=== PATIENT | female | born 1945 | race Caucasian/White ===

== ENCOUNTER → 2016-05-25 | Outpatient (CLI) | payer OTHER ==
[~2016-05-25] MED LIST: ACET50TAOT PO; ADV250INH INH; ALBU17IN INH; ALBU83IN INH; ATOR40TA PO; COLA100C PO; DICY20TA11 PO; DULC5TAB PO; GEMF600T PO; HYDR12CA PO; K-TA10TA2 PO; LEVA250T PO; LEVA500T PO; LISI-542 PO; METF500T PO; MOM30SS PO; NAPR500T2 PO; NICO21DI5 TD; PEG1POW PO; PHILCAP3 PO; PHILCAP4 PO; PRED10PA PO; PRED10TA PO; PRED20TAB PO; PRIL1CAP PO; PROA1AER INH; RANI150T PO; REGL10TA6 PO; SALI0.653; TIOT18INH INH; TRAM50TA2 PO; TYLE325T5 PO; XOPEAER INH
[2016-05-25 17:38] LABS: BASO # 0.1 K/mm3 (0.0-0.2); BASO % 0.7 % (0.0-1.0); EOS # 0.3 K/mm3 (0.0-0.50); EOS % 2.9 % (0.0-3.0); LYMPH % 30.1 % (24.0-44.0); MEAN CORPUSCULAR HGB CONC 32.7 g/dl (32.0-36.5); MEAN CORPUSCULAR VOLUME 94.5 fl (80.0-96.0); MONO # 0.4 K/mm3 (0.0-0.8); MONO % 3.9 % (0.0-5.0); NEUTROPHILS % 59.5 % (36.0-66.0); WHITE BLOOD COUNT 10.1 K/mm3 (4.0-10.0)
[2016-05-25 17:42] LABS: ALBUMIN 3.9 GM/DL (3.2-5.2); ALBUMIN/GLOBULIN RATIO 1.22 (1.00-1.93); BILIRUBIN,TOTAL 0.2 MG/DL (0.2-1.0); CALCIUM LEVEL 9.2 MG/DL (8.8-10.2); CREATININE FOR GFR 0.98 MG/DL (0.55-1.02); GLOMERULAR FILTRATION RATE 59.6 (>39); TOTAL PROTEIN 7.1 GM/DL (6.4-8.2)
== END ==
LOC: M SMT 15:39
PROVIDERS: ATTEND Physician Assistant
DX: Z00.00 Encounter for general adult medical examination without abnormal findings (principal); B37.3 Candidiasis of vulva and vagina; R10.84 Generalized abdominal pain; E11.65 Type 2 diabetes mellitus with hyperglycemia

== ENCOUNTER → 2016-06-19 | Outpatient (CLI) | payer OTHER ==
[2016-06-19 11:59] LABS: ANION GAP 10 MEQ/L (8-16); BLOOD UREA NITROGEN 19 MG/DL (7-18); CALCIUM LEVEL 9.8 MG/DL (8.8-10.2); CARBON DIOXIDE LEVEL 26 MEQ/L (21-32); CHLORIDE LEVEL 103 MEQ/L (98-107); CHOLESTEROL LEVEL 157 MG/DL (<200); CREATININE FOR GFR 0.89 MG/DL (0.55-1.02); GLOMERULAR FILTRATION RATE > 60.0 (>39); GLUCOSE, FASTING 165 MG/DL (83-110); POTASSIUM SERUM 4.7 MEQ/L (3.5-5.1); SODIUM LEVEL 139 MEQ/L (136-145); TRIGLYCERIDES LEVEL 190 MG/DL (<150)
== END ==
LOC: M SMT 08:55
PROVIDERS: ATTEND Physician Assistant
DX: E78.2 Mixed hyperlipidemia (principal)

== ENCOUNTER → 2016-09-24 | Outpatient (CLI) | payer OTHER ==
[~2016-09-24] MED LIST changes: -ATOR40TA PO; +ATOR40TA75 PO; -COLA100C PO; +COLA100C5 PO; +LEVA1TAB PO; +LEVA1TAB2 PO; -LEVA250T PO; -LEVA500T PO; +LEVAINH INH; -METF500T PO; +METF500T13 PO; -NAPR500T2 PO; +NAPR500T3 PO; -PROA1AER INH; +PROAAER10 INH; +SALI0.6523; -SALI0.653; -XOPEAER INH
[2016-09-24 13:38] LABS: BASO # 0.1 K/mm3 (0.0-0.2); BASO % 0.5 % (0.0-1.0); EOS # 0.5 K/mm3 (0.0-0.50); EOS % 3.4 % (0.0-3.0); LARGE UNSTAINED CELL # 0.3 K/mm3 (0.0-0.4); LYMPH % 29.2 % (24.0-44.0); MEAN CORPUSCULAR HEMOGLOBIN 30.8 pg (27.0-33.0); MEAN CORPUSCULAR HGB CONC 32.6 g/dl (32.0-36.5); MEAN CORPUSCULAR VOLUME 94.3 fl (80.0-96.0); MONO # 0.6 K/mm3 (0.0-0.8); MONO % 4.5 % (0.0-5.0); NEUTROPHILS # 8.2 K/mm3 (1.8-7.7); NEUTROPHILS % 60.4 % (36.0-66.0); PLATELET COUNT, AUTOMATED 294 k/mm3 (150-450); RED CELL DISTRIBUTION WIDTH 13.1 % (11.5-14.5); WHITE BLOOD COUNT 13.5 K/mm3 (4.0-10.0)
[2016-09-24 13:56] LABS: ALBUMIN 3.6 GM/DL (3.2-5.2); ALBUMIN/GLOBULIN RATIO 1.09 (1.00-1.93); ALKALINE PHOSPHATASE 130 U/L (45-117); ALT/SGPT 28 U/L (12-78); ANION GAP 10 MEQ/L (8-16); AST/SGOT 25 U/L (15-37); BILIRUBIN,TOTAL 0.4 MG/DL (0.2-1.0); BLOOD UREA NITROGEN 21 MG/DL (7-18); CALCIUM LEVEL 9.2 MG/DL (8.8-10.2); CARBON DIOXIDE LEVEL 25 MEQ/L (21-32); CHLORIDE LEVEL 104 MEQ/L (98-107); CHOLESTEROL LEVEL 136 MG/DL (<200); CREATININE FOR GFR 0.95 MG/DL (0.55-1.02); GLOMERULAR FILTRATION RATE > 60.0 (>39); GLUCOSE, FASTING 134 MG/DL (83-110); POTASSIUM SERUM 4.4 MEQ/L (3.5-5.1); SODIUM LEVEL 139 MEQ/L (136-145); TOTAL PROTEIN 6.9 GM/DL (6.4-8.2); TRIGLYCERIDES LEVEL 284 MG/DL (<150)
== END ==
LOC: M SMT 09:51
PROVIDERS: ATTEND Family Medicine
DX: E78.2 Mixed hyperlipidemia (principal); J44.9 Chronic obstructive pulmonary disease, unspecified; E11.65 Type 2 diabetes mellitus with hyperglycemia

== ENCOUNTER → 2016-09-30 | Outpatient (CLI) | payer OTHER ==
[2016-10-06 00:11] LABS: Lyme Disease IgG Ab 18 kDa Ban Absent (.); Lyme Disease IgG Ab 23 kDa Ban Absent (.); Lyme Disease IgG Ab 28 kDa Ban Absent (.); Lyme Disease IgG Ab 30 kDa Ban Absent (.); Lyme Disease IgG Ab 39 kDa Ban Absent (.); Lyme Disease IgG Ab 41 kDa Ban Absent (.); Lyme Disease IgG Ab 45 kDa Ban Absent (.); Lyme Disease IgG Ab 58 kDa Ban Absent (.); Lyme Disease IgG Ab 66 kDa Ban Absent (.); Lyme Disease IgG Ab 93 kDa Ban Absent (.); Lyme Disease IgG West Blot Int Negative (.); Lyme Disease IgG/IgM Antibodie <0.91 ISR (0.00-0.90); Lyme Disease IgM Ab 23 kDa Ban Absent (.); Lyme Disease IgM Ab 39 kDa Ban Absent (.); Lyme Disease IgM Ab 41 kDa Ban Absent (.); Lyme Disease IgM Ab Quantitati 0.86 index (0.00-0.79); Lyme Disease IgM West Blot Int Negative (.)
== END ==
LOC: M SMT 12:07
PROVIDERS: ATTEND Physician Assistant
DX: R53.83 Other fatigue (principal)

== ENCOUNTER → 2016-11-05 | Outpatient (REF) | payer OTHER | LOC: M LAB REF 18:00 | PROVIDERS: ATTEND Physician Assistant | DX: R10.2 Pelvic and perineal pain (principal) ==

== ENCOUNTER → 2016-11-10 | Outpatient (CLI) | payer OTHER ==
--- NOTE | 2016-11-10 17:01 | REP ---
PELVIC ULTRASOUND, BLADDER: 11/10/2016. CLINICAL HISTORY: Pelvic pressure, urinary frequency, evaluate for bladder prolapse. FINDINGS: The pre-void volume calculation 9.3 x 8.5 x 5 .8 cm corresponds to 299 mL. Postvoid image of the bladder shows it is empty. Ureteral jets were observed bilaterally. No bladder wall thickening, stone, mass or debris. Ultrasound cannot always define bladder prolapse. IMPRESSION: 1. Bladder volume 299 mL pre-void and it empties completely. Ureteral jets observed. No bladder wall thickening, mass or stone. Signed by Will Collado MD 11/11/2016 04:12 P
== END ==
LOC: M RAD 10:29
PROVIDERS: ATTEND Physician Assistant
DX: R10.2 Pelvic and perineal pain (principal)

== ENCOUNTER → 2016-12-17 | Outpatient (CLI) | payer OTHER ==
[2016-12-17 17:36] LABS: ANION GAP 10 MEQ/L (8-16); BLOOD UREA NITROGEN 15 MG/DL (7-18); CALCIUM LEVEL 9.5 MG/DL (8.8-10.2); CARBON DIOXIDE LEVEL 27 MEQ/L (21-32); CHLORIDE LEVEL 102 MEQ/L (98-107); CREATININE FOR GFR 0.96 MG/DL (0.55-1.02); FREE T4 0.97 NG/DL (0.76-1.46); GLOMERULAR FILTRATION RATE > 60.0 (>39); GLUCOSE, FASTING 148 MG/DL (83-110); POTASSIUM SERUM 4.7 MEQ/L (3.5-5.1); SODIUM LEVEL 139 MEQ/L (136-145)
== END ==
LOC: M SMT 11:06
PROVIDERS: ATTEND Physician Assistant
DX: E11.65 Type 2 diabetes mellitus with hyperglycemia (principal)

== ENCOUNTER → 2016-12-23 | Outpatient (CLI) | payer OTHER ==
--- NOTE | 2016-12-23 14:44 | REP ---
PA and lateral chest: Comparisons are 04/12/2059 and 07/13/2008. The lung delgado are clear. Cardiac size is normal. The shashi, mediastinum, and bony thorax are unremarkable. There is a stable small nodule in the right upper lobe, unchanged from 07/13/2008, likely a granuloma. Impression Negative PA and lateral chest. No interval change. Signed by Dev Carrasco MD 12/23/2016 02:35 P
== END ==
LOC: M SMT 14:00
PROVIDERS: ATTEND Family Medicine
DX: J44.1 Chronic obstructive pulmonary disease with (acute) exacerbation (principal)

== ENCOUNTER → 2017-06-23 | Outpatient (CLI) | payer OTHER ==
[2017-06-23 13:23] LABS: BASO # 0.1 10^3/uL (0.0-0.2); BASO % 0.5 % (0.0-1.0); EOS # 0.2 10^3/uL (0.0-0.50); HEMATOCRIT 44.2 % (36.0-47.0); HEMOGLOBIN 13.9 g/dl (12.0-15.5); IMMATURE GRANULOCYTE % 0.4 % (0-3.0); LYMPH # 3.4 10^3/uL (1.5-4.5); LYMPH % 32.4 % (24.0-44.0); MEAN CORPUSCULAR HEMOGLOBIN 29.7 pg (27.0-33.0); MEAN CORPUSCULAR HGB CONC 31.4 g/dl (32.0-36.5); MEAN CORPUSCULAR VOLUME 94.4 fl (80.0-96.0); MONO # 0.6 10^3/uL (0.0-0.8); MONO % 5.4 % (0.0-5.0); NEUTROPHILS # 6.2 10^3/uL (1.8-7.7); NEUTROPHILS % 59.3 % (36.0-66.0); PLATELET COUNT, AUTOMATED 349 10^3/uL (150-450); RED BLOOD COUNT 4.68 10^6/uL (4.00-5.40); RED CELL DISTRIBUTION WIDTH 13.7 % (11.5-14.5); WHITE BLOOD COUNT 10.4 10^3/uL (4.0-10.0)
[2017-06-23 13:34] LABS: ALBUMIN 3.6 GM/DL (3.2-5.2); ALBUMIN/GLOBULIN RATIO 0.97 (1.00-1.93); ALKALINE PHOSPHATASE 131 U/L (45-117); ALT/SGPT 22 U/L (12-78); ANION GAP 12 MEQ/L (8-16); AST/SGOT 24 U/L (7-37); BILIRUBIN,TOTAL 0.4 MG/DL (0.2-1.0); BLOOD UREA NITROGEN 18 MG/DL (7-18); CALCIUM LEVEL 9.3 MG/DL (8.8-10.2); CARBON DIOXIDE LEVEL 22 MEQ/L (21-32); CHLORIDE LEVEL 105 MEQ/L (98-107); CHOLESTEROL LEVEL 137 MG/DL (<200); CHOLESTEROL RISK RATIO 3.914 (<5); CREATININE FOR GFR 1.02 MG/DL (0.55-1.30); GLOMERULAR FILTRATION RATE 56.7 (>39); GLUCOSE, FASTING 149 MG/DL (70-100); HDL CHOLESTEROL 35 MG/DL (>40); LDL CHOLESTEROL 46.8 MG/DL (<100); NON-HDL-C 102 MG/DL; POTASSIUM SERUM 4.5 MEQ/L (3.5-5.1); SODIUM LEVEL 139 MEQ/L (136-145); TOTAL PROTEIN 7.3 GM/DL (6.4-8.2); TRIGLYCERIDES LEVEL 276 MG/DL (<150)
[2017-06-23 13:58] LABS: ESTIMATED AVERAGE GLUCOSE 186 MG/DL (60-110); HEMOGLOBIN A1c 8.1 %
[2017-06-23 14:07] LABS: CREATININE, URINE 66.2 MG/DL; MAU/CREAT RATIO 255.2 MCG/MG (0.0-30.0)
== END ==
LOC: M SMT 11:28
DX: J44.1 Chronic obstructive pulmonary disease with (acute) exacerbation (principal); E78.2 Mixed hyperlipidemia; E11.65 Type 2 diabetes mellitus with hyperglycemia; R30.0 Dysuria
CPT/HCPCS: 80053

== ENCOUNTER → 2017-12-06 | Outpatient (CLI) | payer OTHER ==
[2017-12-06 13:25] LABS: BASO # 0.1 10^3/uL (0.0-0.2); BASO % 0.6 % (0.0-1.0); EOS # 0.3 10^3/uL (0.0-0.50); EOS % 1.9 % (0.0-3.0); HEMATOCRIT 44.5 % (36.0-47.0); HEMOGLOBIN 14.8 g/dl (12.0-15.5); IMMATURE GRANULOCYTE % 0.3 % (0-3.0); LYMPH # 3.1 10^3/uL (1.5-4.5); LYMPH % 23.2 % (24.0-44.0); MEAN CORPUSCULAR HEMOGLOBIN 30.5 pg (27.0-33.0); MEAN CORPUSCULAR HGB CONC 33.3 g/dl (32.0-36.5); MEAN CORPUSCULAR VOLUME 91.8 fl (80.0-96.0); MONO % 7.2 % (0.0-5.0); NEUTROPHILS % 66.8 % (36.0-66.0); PLATELET COUNT, AUTOMATED 416 10^3/uL (150-450); RED BLOOD COUNT 4.85 10^6/uL (4.00-5.40); RED CELL DISTRIBUTION WIDTH 12.9 % (11.5-14.5); WHITE BLOOD COUNT 13.5 10^3/uL (4.0-10.0)
[2017-12-06 15:49] LABS: ALBUMIN 4.4 GM/DL (3.2-5.2); ALBUMIN/GLOBULIN RATIO 1.07 (1.00-1.93); ALKALINE PHOSPHATASE 128 U/L (45-117); ALT/SGPT 74 U/L (12-78); AMYLASE 67 U/L (25-115); ANION GAP 13 MEQ/L (8-16); AST/SGOT 132 U/L (7-37); BILIRUBIN,TOTAL 0.4 MG/DL (0.2-1.0); BLOOD UREA NITROGEN 30 MG/DL (7-18); CALCIUM LEVEL 10.4 MG/DL (8.8-10.2); CARBON DIOXIDE LEVEL 23 MEQ/L (21-32); CHLORIDE LEVEL 98 MEQ/L (98-107); CREATININE FOR GFR 1.19 MG/DL (0.55-1.30); GLOMERULAR FILTRATION RATE 47.3 (>39); GLUCOSE, FASTING 170 MG/DL (70-100); LIPASE 183 U/L (73-393); POTASSIUM SERUM 5.2 MEQ/L (3.5-5.1); SODIUM LEVEL 134 MEQ/L (136-145); TOTAL PROTEIN 8.5 GM/DL (6.4-8.2)
== END ==
LOC: M SMT 11:37
DX: R10.9 Unspecified abdominal pain (principal)
CPT/HCPCS: 82150

== ENCOUNTER → 2017-12-15 | Outpatient (REF) | payer OTHER | LOC: M LAB REF 17:16 | DX: K52.9 Noninfective gastroenteritis and colitis, unspecified (principal) | CPT/HCPCS: 83630 ==

== ENCOUNTER → 2018-01-27 | Outpatient (CLI) | payer OTHER | LOC: M RAD 11:38 | DX: Z12.31 Encounter for screening mammogram for malignant neoplasm of breast (principal); Z78.0 Asymptomatic menopausal state | CPT/HCPCS: 77067 ==

== ENCOUNTER → 2018-03-11 | Outpatient (CLI) | payer OTHER ==
[~2018-03-11] MED LIST changes: +ACET500T15 PO; -ACET50TAOT PO; -GEMF600T PO; +GEMF600T5 PO; -LEVA1TAB PO; +LEVA250T13 PO; +NAPR-885 PO; -NAPR500T3 PO; -NICO21DI5 TD; +NICO21DI6 TD; -SALI0.6523; +SALI0.6528
--- NOTE | 2018-03-11 14:48 | REP ---
LUMBAR SPINE, SEVEN VIEWS: HISTORY: Back pain. There is no acute fracture. The lumbar intervertebral discs are decreased in height consistent with disc degeneration. Osteophytes are present throughout the lumbar spine. There is narrowing of the L3-4 through L5-S1 facet joints. There are 6 mm of grade 1 spondylolisthesis of L4 on L5. This is unchanged with flexion and extension. IMPRESSION: Degenerative change, as described above. Electronically Signed by Matthias North MD 03/11/2018 02:57 P
== END ==
LOC: M SMT 13:58
PROVIDERS: ATTEND Physician Assistant
DX: M51.36 Other intervertebral disc degeneration, lumbar region (principal); M25.78 Osteophyte, vertebrae; M43.16 Spondylolisthesis, lumbar region; M54.5 Low back pain

== ENCOUNTER → 2018-05-30 | Outpatient (CLI) | payer MEDICARE ==
[2018-05-30 17:29] LABS: ALBUMIN 3.2 GM/DL (3.2-5.2); BILIRUBIN,TOTAL 0.3 MG/DL (0.2-1.0); CALCIUM LEVEL 9.1 MG/DL (8.8-10.2); CREATININE FOR GFR 0.99 MG/DL (0.55-1.30); FREE T4 1.05 NG/DL (0.76-1.46); GLOMERULAR FILTRATION RATE 58.5 (>39); POTASSIUM SERUM 4.3 MEQ/L (3.5-5.1); THYROID STIMULATING HORMONE 1.88 uIU/ML (0.358-3.740); TOTAL PROTEIN 6.5 GM/DL (6.4-8.2)
[2018-05-30 17:57] LABS: BASO # 0.1 10^3/uL (0.0-0.2); BASO % 0.6 % (0.0-1.0); EOS # 0.4 10^3/uL (0.0-0.50); EOS % 2.7 % (0.0-3.0); HEMATOCRIT 43.6 % (36.0-47.0); HEMOGLOBIN 13.8 g/dl (12.0-15.5); LYMPH # 3.2 10^3/uL (1.5-4.5); LYMPH % 24.2 % (24.0-44.0); MEAN CORPUSCULAR HEMOGLOBIN 29.9 pg (27.0-33.0); MEAN CORPUSCULAR HGB CONC 31.7 g/dl (32.0-36.5); MEAN CORPUSCULAR VOLUME 94.6 fl (80.0-96.0); MONO # 0.7 10^3/uL (0.0-0.8); MONO % 5.2 % (0.0-5.0); NEUTROPHILS # 8.8 10^3/uL (1.8-7.7); NEUTROPHILS % 66.9 % (36.0-66.0); PLATELET COUNT, AUTOMATED 314 10^3/uL (150-450); RED BLOOD COUNT 4.61 10^6/uL (4.00-5.40); WHITE BLOOD COUNT 13.1 10^3/uL (4.0-10.0)
== END ==
LOC: M SMT 14:52
PROVIDERS: ATTEND Physician Assistant
DX: R53.83 Other fatigue (principal)

== ENCOUNTER → 2018-09-28 | Outpatient (CLI) | payer MEDICARE ==
[~2018-09-28] MED LIST changes: +PRED-351 PO; -PRED10TA PO
== END ==
LOC: M PLARAD 12:28
PROVIDERS: ATTEND Internal Medicine Pulmonary Disease
DX: R91.8 Other nonspecific abnormal finding of lung field (principal); Z53.9 Procedure and treatment not carried out, unspecified reason

== ENCOUNTER → 2019-05-10 | Outpatient (REF) | payer MEDICARE | LOC: M LAB REF 17:05 | PROVIDERS: ATTEND Physician Assistant | DX: R39.15 Urgency of urination (principal) ==

== ENCOUNTER 2019-06-13 18:26 | Inpatient (IN) | payer MEDICARE ==
[~2019-06-13] VITALS: Ht 152.4 cm; Wt 96.0 kg
[2019-06-13] MEDS ORDERED: ONDANSETRON 4MG/2ML VIAL (J2405) IV ONE (19:30)
[2019-06-13] MEDS ORDERED: NS 1,000 ML IV ONE (19:30)
[2019-06-13] MEDS ORDERED: MORPHINE 4 MG/ML 1ML VIAL/SYRINGE (J2270) IV PRN (19:30)
[2019-06-13 19:41] LABS: BASO # 0.1 10^3/uL (0.0-0.2); BASO % 0.3 % (0.0-1.0); EOS % 0.1 % (0.0-3.0); HEMOGLOBIN 15.8 g/dl (12.0-15.5); LYMPH # 1.9 10^3/uL (1.5-5.0); LYMPH % 10.5 % (24.0-44.0); MEAN CORPUSCULAR HGB CONC 32.2 g/dl (32.0-36.5); MEAN CORPUSCULAR VOLUME 93.2 fl (80.0-96.0); MONO # 1.2 10^3/uL (0.0-0.8); MONO % 6.5 % (0.0-5.0); NEUTROPHILS # 14.8 10^3/uL (1.5-8.5); PLATELET COUNT, AUTOMATED 265 10^3/uL (150-450); RED BLOOD COUNT 5.26 10^6/uL (4.00-5.40)
[2019-06-13 20:24] LABS: ALBUMIN 3.5 GM/DL (3.2-5.2); BILIRUBIN,DIRECT 0.3 MG/DL (0.0-0.2); BILIRUBIN,TOTAL 1.1 MG/DL (0.2-1.0); CALCIUM LEVEL 9.5 MG/DL (8.8-10.2); CK-MB VALUE MASS 20.4 NG/ML (<3.6); CREATININE FOR GFR 1.19 MG/DL (0.55-1.30); GLOMERULAR FILTRATION RATE 47.2 (>39); MB/CK RELATIVE INDEX 0.72 (< OR =4); POTASSIUM SERUM 4.6 MEQ/L (3.5-5.1); TOTAL PROTEIN 7.2 GM/DL (6.4-8.2); TROPONIN I 0.02 NG/ML (< 0.10)
--- NOTE | 2019-06-13 20:45 | REPVR ---
PROCEDURE INFORMATION: Exam: CT Thoracic Spine Without Contrast Exam date and time: 06/13/2019 7:51 PM Age: 73 years old Clinical indication: Injury or trauma; Fall; Initial encounter; Blunt trauma (contusions or hematomas) TECHNIQUE: Imaging protocol: Computed tomography images of the thoracic spine without contrast. Radiation optimization: All CT scans at this facility use at least one of these dose optimization techniques: automated exposure control; mA and/or kV adjustment per patient size (includes targeted exams where dose is matched to clinical indication); or iterative reconstruction. COMPARISON: CR SPINE LS W/BENDING 03/11/2018 2:08 PM FINDINGS: Vertebrae: The thoracic vertebral bodies are normal in height, without abnormal subluxation. Diffuse osteopenia. No significant scoliosis of the thoracic spine. No visualized acute fracture involving the thoracic spine. Within the T3 vertebral body, there is a 7 mm hypodense lytic lesion, which is nonspecific. Discs/Spinal canal/Neural foramina: Degenerative changes are identified at multiple thoracic levels, with disc bulge/osteophyte complexes. Mild narrowing of the thecal sac is identified at T6-7 with a posterior disc bulge/osteophyte complex. No significant narrowing of the thecal sac at the remaining thoracic levels. There is no osseous impingement upon the exiting nerve roots within the thoracic neural foramina diffusely. Other bones/joints: Motion artifact limits evaluation of the ribs. Soft tissues: Mild swelling of the subcutaneous tissues posterior to the upper lumbar spine. Lungs: Centrilobular emphysematous changes are identified within the lungs bilaterally. Bilateral lung nodules are identified, most significant within the right upper lobe. The largest nodule in the right upper lobe measures 7 mm on series 502, image 32. There is a suggestion of air-fluid levels within the trachea and main pulmonary bronchi, although this can be contributed by artifact. Aspiration secretions are also considered. Gallbladder and bile ducts: Cholecystectomy clips identified. IMPRESSION: 1. No visualized acute fracture involving the thoracic spine. 2. Degenerative changes are identified at multiple thoracic levels. Mild narrowing of the thecal sac is identified at T6-7. 3. Within the T3 vertebral body, there is a 7 mm lytic lesion, which is nonspecific. A follow-up MRI is suggested. 4. Bilateral lung nodules are identified, most significant within the right upper lobe. For patients at low risk (minimal or absent history of smoking and of other known risk factors), recommend CT Chest at 3-6 months, then consider CT Chest at 18-24 months. For patients at high risk (history of smoking or of other known risk factors), recommend CT Chest at 3-6 months, then CT Chest at 18-24 months. Anyi Fuentes, Fleischner Society, 2017. 5. There is a suggestion of air-fluid levels within the trachea and main pulmonary bronchi, although this can be contributed by artifact. Aspiration secretions are also considered. Clinical correlation is recommended. 6. Additional findings described above. Electronically signed by: Dudley Whittaker On 06/13/2019 20:45:17 PM
[2019-06-13 20:47] LABS: AMORPHOUS SEDIMENT SMALL (NEGATIVE); APPEARANCE, URINE HAZY (CLEAR); BACTERIA, URINE AUTO NEGATIVE (NEGATIVE); BILIRUBIN, URINE AUTO NEGATIVE (NEGATIVE); BLOOD, URINE BLOOD 1+ (NEGATIVE); COLOR, URINE YELLOW (YELLOW); GLUCOSE, URINE (UA) AUTO 1+ mg/dL (NEGATIVE); KETONE, URINE AUTO TRACE mg/dL (NEGATIVE); LEUKOCYTE ESTERASE, URINE AUTO NEGATIVE (NEGATIVE); MUCUS, URINE SMALL (NEGATIVE); NITRITE, URINE AUTO NEGATIVE (NEGATIVE); PROTEIN, URINE AUTO 2+ mg/dL (NEGATIVE); RBC, URINE AUTO 0 /HPF (0-3); SPECIFIC GRAVITY URINE AUTO 1.016 (1.002-1.035); SQUAMOUS EPITHELIAL CELL UR AU 0 /HPF (0-6); UROBILINOGEN, URINE AUTO 0.2 mg/dL (0.0-2.0); WBC, URINE AUTO 0 /HPF (0-3)
--- NOTE | 2019-06-13 20:51 | REPVR ---
PROCEDURE INFORMATION: Exam: CT Head Without Contrast Exam date and time: 06/13/2019 7:51 PM Age: 73 years old Clinical indication: Injury or trauma; Fall; Initial encounter; Blunt trauma (contusions or hematomas) TECHNIQUE: Imaging protocol: Computed tomography of the head without contrast. Radiation optimization: All CT scans at this facility use at least one of these dose optimization techniques: automated exposure control; mA and/or kV adjustment per patient size (includes targeted exams where dose is matched to clinical indication); or iterative reconstruction. COMPARISON: No relevant prior studies available. FINDINGS: Brain: There is mild patchy white matter hypodensity, likely representing small vessel ischemic disease in a patient this age. The acuity of the white matter disease is indeterminate. The white-deluca differentiation is preserved demonstrating no acute territorial type infarct. Artifact limits evaluation of the cerebellum. No acute intracranial hemorrhage is visualized. Midline shift: There is no midline shift. Ventricles: There is mild prominence of the ventricles and sulci, compatible with atrophy. Bones/joints: The calvarium demonstrates no evidence for a depressed fracture. Sinuses: Visualized sinuses are unremarkable. No fluid levels. Mastoid air cells: No mastoid effusion. Orbits: Bilateral orbital lens implants. Soft tissues: Unremarkable. Vasculature: Intracranial atherosclerosis visualized. IMPRESSION: 1. No acute intracranial hemorrhage or acute territorial type infarct. 2. There is mild patchy white matter hypodensity, likely representing small vessel ischemic disease in a patient this age. 3. Mild atrophy. Electronically signed by: Dudley Whittaker On 06/13/2019 20:50:41 PM
--- NOTE | 2019-06-13 20:56 | REP ---
Clinical: Trauma. Fall. Technique: Frontal view of the pelvis with neutral and frog lateral views of the right and left hip. Findings: Left femoral neck fracture is suspected and correlation is required. Right hip and pelvis appear otherwise relatively normal for age. Impression: Left femoral neck fracture suspected. Electronically Signed by Navi Van MD 06/13/2019 08:47 P
--- NOTE | 2019-06-13 20:57 | REP ---
Clinical: Preoperative assessment . Comparison: 12/23/2016 . Findings: The mediastinum and cardiac silhouette are stable and within normal limits for portable technique. The lung delgado are clear without acute consolidation, effusion, or pneumothorax. Skeletal structures are intact. Impression: No acute cardiopulmonary process appreciated. Electronically Signed by Navi Van MD 06/13/2019 08:48 P
--- NOTE | 2019-06-13 20:57 | REPVR ---
PROCEDURE INFORMATION: Exam: CT Cervical Spine Without Contrast Exam date and time: 06/13/2019 7:51 PM Age: 73 years old Clinical indication: Injury or trauma; Fall; Initial encounter; Blunt trauma TECHNIQUE: Imaging protocol: Computed tomography images of the cervical spine without contrast. Radiation optimization: All CT scans at this facility use at least one of these dose optimization techniques: automated exposure control; mA and/or kV adjustment per patient size (includes targeted exams where dose is matched to clinical indication); or iterative reconstruction. COMPARISON: CR SPINE LS W/BENDING 03/11/2018 2:08 PM FINDINGS: Vertebrae: No definitive acute cervical spine fracture on this motion limited study. The facet alignment is preserved bilaterally. The occipital condyles and C1-C2 articulations appear intact. The cervical lordosis is straightened. Mild anterolisthesis of C3 on C4. Hypertrophic degenerative changes are identified at the junction of the anterior C1 arch and dens process. Discs/Spinal canal/Neural foramina: Spondylosis is visualized at multiple cervical levels. Facet arthropathy is identified at multiple cervical levels. Other bones/joints: Small foci of gas or pneumatocysts are identified within the proximal 1st ribs bilaterally. Soft tissues: No significant prevertebral soft tissue swelling. Lungs: No pneumothorax, as visualized. Emphysematous changes identified. Other findings: Motion artifact limits this study. Heterogeneous density of the thyroid gland. Atherosclerotic changes. IMPRESSION: 1. No definitive acute cervical spine fracture on this motion limited study. 2. The cervical lordosis is straightened. 3. Mild anterolisthesis of C3 on C4. 4. Spondylosis is visualized at multiple cervical levels. Electronically signed by: Dudley Whittaker On 06/13/2019 20:57:01 PM
--- NOTE | 2019-06-13 21:05 | REPVR ---
PROCEDURE INFORMATION: Exam: CT Lumbar Spine Without Contrast Exam date and time: 06/13/2019 7:51 PM Age: 73 years old Clinical indication: Injury or trauma; Fall; Initial encounter; Blunt trauma (contusions or hematomas) TECHNIQUE: Imaging protocol: Computed tomography images of the lumbar spine without contrast. Radiation optimization: All CT scans at this facility use at least one of these dose optimization techniques: automated exposure control; mA and/or kV adjustment per patient size (includes targeted exams where dose is matched to clinical indication); or iterative reconstruction. COMPARISON: CR SPINE LS W/BENDING 03/11/2018 2:08 PM FINDINGS: Vertebrae: No visualized acute fracture involving the lumbar spine. Grade 1 anterolisthesis of L4 on L5. Slight anterolisthesis of L3 on L4. Diffuse osteopenia. The lumbar vertebral bodies are normal in height. Mild dextroscoliosis of the lumbar spine. Discs/Spinal canal/Neural foramina: Degenerative changes are identified at multiple lumbar levels. Facet arthropathy is identified within the lower lumbar spine. At L3-L4, there is a broad-based disc bulge, with moderate narrowing of the thecal sac and narrowing of both lateral recesses. A broad-based disc bulge is identified at is visualized at L4-L5 with severe narrowing of the thecal sac and narrowing of both lateral recesses. The thecal sac tapers at L5-S1, without compression. Varying degrees of neural foraminal narrowing identified from L2-L3 through L4-L5, with severe right neural foraminal narrowing at L3-L4. Liver: Hypodense fatty infiltration of the liver. Gallbladder and bile ducts: Cholecystectomy clips visualized. Vasculature: Atherosclerotic changes identified. Soft tissues: Mild swelling of the subcutaneous tissues posterior to the lumbar spine. Other findings: Motion artifact limits this study. IMPRESSION: 1. No visualized acute fracture involving the lumbar spine. 2. Grade 1 anterolisthesis of L4 on L5. Slight anterolisthesis of L3 on L4. 3. Mild dextroscoliosis of the lumbar spine. 4. Degenerative changes are identified at multiple lumbar levels. At L3-L4, there is a broad-based disc bulge, with moderate narrowing of the thecal sac and narrowing of both lateral recesses. A broad-based disc bulge is identified at is visualized at L4-L5 with severe narrowing of the thecal sac and narrowing of both lateral recesses. 5. Varying degrees of neural foraminal narrowing identified from L2-L3 through L4-L5. Electronically signed by: Dudley Whittaker On 06/13/2019 21:05:00 PM
[2019-06-13] MEDS ORDERED: methylPREDNISolone INJ 40 MG/1 ML VIAL (J2920) IV SCH (22:00)
[2019-06-13] MEDS ORDERED: PERCOCET 5MG/325MG TAB PO PRN (22:00)
[2019-06-13] MEDS ORDERED: IPRATROPIUM 0.5MG/ALBUTEROL 2.5MG INH SOL UD 3ML (DUONEB)(J7620) NEB SCH (22:00)
[2019-06-13] MEDS: NS 1,000 ML IV SCH (22:00)
[2019-06-13] MEDS ORDERED: ACETAMINOPHEN TAB 650MG DOSE (2X325MG) PO PRN (22:00)
[2019-06-13] MEDS ORDERED: MAALOX 30 ML SUSP *UDC PO PRN (22:00)
[2019-06-13] MEDS ORDERED: MOM 30ML SUSPENSION UDC PO PRN (22:00)
[2019-06-13] MEDS ORDERED: ALBUTEROL SULFATE 2.5 MG/0.5 ML INH NEB SOLN NEB PRN (22:00)
--- NOTE | 2019-06-13 22:29 | HPEPDOC ---
General Date of Admission Date of Service: Jun 13, 2019 Chief Complaint The patient is a 73-year-old female admitted with a reason for visit of FALL. Source: Patient, Family Exam Limitations: Dementia, Mild cognitive slowing Timing/Duration: 24 hours Associated Symptoms: Cough, Shortness of breath, Mechanical fall History of Present Illness 73-year-old female with past medical history of COPD, type 2 diabetes, cognitive impairment initially presents to the ER after a fall. Majority of history is obtained by the son as patient is unclear as to what happened and appears to be somewhat demented. Son reports that patient fell at approximately 1:30 AM yesterday morning. No one witnessed the fall and is unclear the mechanism in which patient had fallen. Patient has had multiple falls recently and she is usually unsteady on her legs. She has been noncompliant with the use of her walker and cane around the house. Patient's heard the fall and attended to help her get up but unfortunately was unable to do so due to her weight. Patient's then attempted to call the son but his cell phone diet and therefore was unable to do so as well. The then drove over to her son's house the following day and alerted the son who had just finished working. During this entire time, patient was lying down in the same spot as she had fallen. Patient is unclear as to the mechanism of the fall. She does not believe she hit her head, passed out, lost consciousness during this event. She did not complain of any recent palpitations or chest pain or other chest discomfort. When the son arrived to the patient's home, he attempted to move her and was unable to do so. Due to the circumstances, he called 911 for further help. Patient currently lives with her and is usually independent in her ADLs. Son reports that his mother has been very forgetful as of late and believes that she has some aspects dementia. Patient currently denies any fevers, chills, shortness of breath, chest pain, abdominal pain. Her only complaints are severe pain in her hip as well as her back. She is currently coughing but failed that is normal for her as she has been smoking for 60+ years. ER evaluation reveals likely left femoral neck fracture and orthopedic surgery was called. Patient will likely need surgical intervention or go to evaluate tomorrow morning. Patient also noted to be in rhabdomyolysis with elevated CK and has some other findings on CT as well as chest x-ray and may need further w orkup as well. Patient to be admitted as inpatient for now. Home Medications Scheduled Atorvastatin Calcium (Atorvastatin Calcium) 40 Mg Tablet, 40 MG PO DAILY, (Reported) Calcium Carbonate/Vitamin D3 (Calcium 600-Vit D3 800 Tablet) 1 Each Tablet, 1 TAB PO DAILY, (Reported) Ergocalciferol (Vitamin D2) (Vitamin D2) 50,000 Units Cap, 50,000 UNITS PO 1XWK, (Reported) Hydrochlorothiazide (Hydrochlorothiazide) 12.5 Mg Capsule, 12.5 MG PO DAILY, (Reported) Lisinopril (Lisinopril) 5 Mg Tablet, 5 MG PO DAILY, (Reported) Metformin HCl (Metformin HCl) 500 Mg Tablet, 1,000 MG PO BID, (Reported) Thornton-3/Dha/Epa/Fish Oil (Fish Oil 1,000 mg Softgel) 1 Each Capsule, 1 CAP PO DAILY, (Reported) Potassium Chloride (Potassium Chloride) 10 Meq Tab.er.prt, 10 MEQ PO DAILY, (Reported) Potassium Gluconate (Potassium Gluconate) 99 Mg Tablet, 595 MG PO DAILY, (Reported) Sertraline HCl (Sertraline HCl) 50 Mg Tablet, 50 MG PO DAILY, (Reported) Sitagliptin Phosphate (Januvia) 100 Mg Tablet, 100 MG PO DAILY, (Reported) Scheduled PRN Acetaminophen (Tylenol Extra Strength) 500 Mg Tablet, 1,000 MG PO Q6H PRN for PAIN / FEVER, (Reported) Dicyclomine HCl (Dicyclomine HCl) 10 Mg Capsule, 10 MG PO QID PRN for CRAMPS, (Reported) Docusate Sodium (Docusate Sodium) 100 Mg Capsule, 100 MG PO BID PRN for CONSTIPATION, (Reported) Levalbuterol Tartrate (Levalbuterol Tartrate Hfa) 15 Gm Hfa.aer.ad, 2 PUFF INH Q6H PRN for SHORTNESS OF BREATH, (Reported) Ondansetron (Ondansetron Odt) 4 Mg Tab.rapdis, 8 MG PO Q4H PRN for NAUSEA, (Reported) Promethazine HCl (Promethazine HCl) 25 Mg Tablet, 25 MG PO Q6H PRN for NAUSEA, (Reported) Allergies Coded Allergies: No Known Allergies (Unverified , 06/13/19) Past Medical History Medical History COPD, type 2 diabetes, dementia Surgical History Patient unable to answer due to clinical condition Family History Father had diabetes, hypertension, unknown cancer. Mother from breast cancer complications Social History * Smoker: current smoker (has smoked for 60+ years and averages approximately 10-20 cigarettes per day) Alcohol: Denies Drugs: denies Recent Travel/Sick Contacts: Denies: Recent travel, Recent sick contacts Psychosocial History: Dementia Lives at home with her . Patient is a homemaker. Usually ambulates with a walker and cane but has been noncompliant. She does not have a home health aide. A-FIB/CHADSVASC A-FIB History Current/History of A-Fib/PAF?: No Review of Systems Constitutional: Denies: Chills, Fever, Weakness, Fatigue, Weight Loss Eyes: Denies: Pain, Vision change ENT: Denies: Head Aches, Ear Pain, Dysphagia Skin: Denies: Rash, Lesions, Breakdown Pulmonary: Reports: Dyspnea, Cough; Denies: Pleuritic Chest Pain Cardiovascular: Denies: Chest Pain, Palpitations, Orthopnea, Edema, Lt Headedness Gastrointestinal: Reports: Nausea; Denies: Vomiting, Abdominal Pain, Diarrhea, Constipation Genitourinary: Denies: Dysuria, Frequency Hematologic: Denies: Bruising Musculoskeletal: Reports: Neck Pain, Back Pain, Other Symptoms (severe hip pain) Neurological: Denies: Weakness, Numbness, Change in speech, Seizures Psych: Reports: Mood Normal Physical Examination General Exam: Positive: Alert, Cooperative, Mild Distress, Other (White elderly female looks older than stated age. Poor hygiene noted and somewhat malodorous.) Eye Exam: Positive: PERRLA, Conjunctiva & lids normal, EOMI; Negative: Sclera icteric ENT Exam: Positive: Atraumatic; Negative: Mucous membr. moist/pink (mucous membranes are very dry and lips are cracking.) Neck Exam: Positive: Supple; Negative: JVD, thyromegaly Chest Exam: Positive: Rales, Rhonchi, Wheezing, Diminished Heart Exam: Positive: Tachycardic, Regular Rhythm, Irregular Rhythm Abdomen Exam: Positive: Normal bowel sounds, Soft; Negative: Tenderness, Hepatospenomegaly Extremity Exam: Negative: Clubbing, Edema Skin Exam: Negative: Rash, Breakdown, Lesion Neuro Exam: Positive: Strength at 5/5 X4 ext, Normal Tone, Sensation Intact, Cranial Nerves 3-12 NL Psych Exam: Positive: Mental status NL, Mood NL Vital Signs Vital Signs Date Time Temp Pulse Resp B/P (MAP) Pulse Ox O2 Delivery O2 Flow Rate FiO2 06/13/19 20:10 20 95 06/13/19 19:41 124 06/13/19 19:35 Room Air 06/13/19 19:25 98.1 124/87 (99) Laboratory Data Labs 24H Laboratory Tests 2 06/13/19 19:26: Immature Granulocyte % (Auto) 0.6, Neutrophils (%) (Auto) 82.0H, Lymphocytes (%) (Auto) 10.5L, Monocytes (%) (Auto) 6.5H, Eosinophils (%) (Auto) 0.1, Basophils (%) (Auto) 0.3, Neutrophils # (Auto) 14.8H, Lymphocytes # (Auto) 1.9, Monocytes # (Auto) 1.2H, Eosinophils # (Auto) 0.0, Basophils # (Auto) 0.1, Nucleated Red Blood Cells % (auto) 0.0, Urine Color YELLOW, Urine Appearance HAZY, Urine pH 5.0, Urine Specific [place] 1.016, Urine Protein 2+H, Urine Glucose (Auto)(UA) 1+H, Urine Ketones (Auto) TRACEH, Urine Blood 1+H, Urine Nitrite NEGATIVE, Urine Bilirubin NEGATIVE, Urine Urobilinogen 0.2, Urine Leukocyte Esterase (Auto) NEGATIVE, Urine WBC (Auto) 0, Urine RBC (Auto) 0, Urine Hyaline Casts (Auto) 0, Urine Bacteria (Auto) NEGATIVE, Urine Squamous Epithelial Cells 0, Urine [place] rphous Sediment (Auto) SMALLH, Urine Mucus (Auto) SMALL, Urine Sperm (Auto) , Anion Gap 9, Glomerular Filtration Rate 47.2, Calcium Level 9.5, Total Bilirubin 1.1H, Direct Bilirubin 0.3H, Aspartate Amino Transf (AST/SGOT) 71H, Alanine Aminotransferase (ALT/SGPT) 36, Alkaline Phosphatase 114, Total Creatine Kinase 2827H, Creatine Kinase MB 20.4H, Creatine Kinase MB Relative Index 0.72, Troponin I 0.02, Total Protein 7.2, Albumin 3.5, Albumin/Globulin Ratio 0.95L CBC/BMP Laboratory Tests 06/13/19 19:26 RAD Interpretation STUDY: CXR Rad Actions: Report Reviewed, Films Reviewed RAD Interpretation: Unchanged STUDY: XR pelvis Rad Actions: Report Reviewed, Films Reviewed, Discussed with the pt (suspected left femoral neck fracture) STUDY: CT thoracic spine Rad Actions: Report Reviewed, Films Reviewed RAD Interpretation: Other Result Comments: (lytic lesion noted in T3, multiple pulmonary nodules) Assessment/Plan 73-year-old female with multiple medical comorbidities presents with a fall. Found to have likely left femoral neck fracture which may require surgical intervention. However patient also noted to be diffusely wheezing and has element of rhabdo due to the fall. Patient is currently not medically optimized for surgery at this time and would be at high risk for cardiovascular complications due to her concurrent medical issues. We'll begin treatment for COPD exacerbation, rhabdo. Once these have resolved patient can then be optimized for what appeared surgery as needed. Problems (1) Rhabdomyolysis Status: Acute Problem Text: Patient has elevated CK and was down on the floor for approximately 14 hours as per son. There is some blood in the urine as well as evidenced on UA. - Continue with IV fluids and encourage by mouth water intake - Monitor BMP daily for change in renal function - Follow up repeat CK to ensure it is improving (2) Acute exacerbation of chronic obstructive pulmonary disease Status: Acute Problem Text: Patient has a 60+ pack year smoking history. Still smoking at this time. She has diffuse wheezing on lung exam and has audible rails and r honchi. She also has component of upper respiratory congestion which is a chronic issue for her. Chest x-ray does not show any evidence of infiltrates so a lipid pneumonia. - DuoNeb's every 6 standing - Albuterol every 4 hours when necessary - Start Solu-Medrol 40 mg IV every 8 hours - taper as tolerated (3) Closed left hip fracture Status: Acute Problem Text: Patient appears to have left femoral neck fracture and is currently unable to ambulate and is having severe pain. ER states that they called Dr. Mckoy who is aware of the patient - Follow up ortho consult with Dr. Mckoy - Pain control with Percocet when necessary, Tylenol - Bedrest for now - PT eval after ortho sees - Patient is currently not medically optimized for surgical procedure at this time. She is at high risk for cardiovascular complications given her concurrent medical cor morbidities. (4) Diabetes Status: Chronic Problem Text: - Hold oral hypoglycemic agents - -On insulin sliding scale and adjust as needed - Diabetic diet (5) HLD (hyperlipidemia) Status: Chronic Problem Text: - Continue with statin as per home dose (6) HTN (hypertension) Problem Text: Given possible rhabdo, we'll hold KARY inhibitor for now. - Continue with HCTZ - Hold lisinopril for now Plan / VTE VTE Prophylaxis Ordered?: Yes Plan IVF: Initiate, Continue Diet: Continue Current Activity: Bedrest Medications: Start Steroids Diagnostics: Repeat Labs in AM Anticipated Discharge: Sub Acute Rehab, Correction YOVANI YANG MD Jun 13, 2019 22:29
[2019-06-13] MEDS ORDERED: VITA50005 PO (22:30)
[2019-06-13] MEDS ORDERED: HYDR12CA PO (22:30)
[2019-06-13] MEDS ORDERED: ATOR40TA75 PO (22:30)
[2019-06-13] MEDS ORDERED: DOCU100C16 PO (22:30)
[2019-06-13] MEDS ORDERED: JANU100T PO (22:30)
[2019-06-13] MEDS ORDERED: SERT50TA29 PO (22:30)
[2019-06-13] MEDS ORDERED: CALC1TAB29 PO (22:30)
[2019-06-13] MEDS ORDERED: METF-839 PO (22:30)
[2019-06-13] MEDS ORDERED: POTA10TA67 PO (22:30)
[2019-06-13] MEDS ORDERED: LISI-542 PO (22:30)
[2019-06-13] MEDS ORDERED: LEVA45AE INH (22:30)
[2019-06-13] MEDS ORDERED: OMEG10002 PO (22:30)
[2019-06-13] MEDS ORDERED: ACET-897 PO (22:30)
[2019-06-13] MEDS ORDERED: POTA99TA10 PO (22:30)
[2019-06-13] MEDS ORDERED: DICY1CAP8 PO (22:30)
[2019-06-13] MEDS ORDERED: GLUCAGON FOR INJ 1 MG VIAL (J1610) SC PRN ×2 (22:45)
[2019-06-13] MEDS ORDERED: DEXTROSE 50% 50 ML SYRINGE IV PRN ×2 (22:45)
[2019-06-13] MEDS ORDERED: GLUCOSE 4 GM CHEW TABLET PO PRN ×2 (22:45)
[2019-06-13] MEDS ORDERED: ONDA4TAB6 PO (22:47)
[2019-06-13] MEDS ORDERED: PROM25TA12 PO (22:48)
--- NOTE | 2019-06-13 23:19 | CR.PDOC ---
General Date of Consultation: Jun 13, 2019 Attending Physician: RADU CORADO MD Consultation REASON FOR CONSULTATION/CHIEF COMPLAINT: L hip fracture. HISTORY OF PRESENT ILLNESS: Patient is a 73 y/o female home ambulator with a walker who sustained an unwitnessed fall from standing height resulting in inability to bear weight. She was found down by her who subsequently brought her to the hospital and was found to have a left proximal femur fracture. The patient does not recall falling. She denies any associated headache, palpitations, chest pain, palpitations. ALLERGIES: Please see below. HOME MEDICATIONS: Please see below. PAST MEDICAL HISTORY: 1. COPD. 2. Diabetes. 3. Dementia PAST SURGICAL HISTORY: 1. Cholestectomy 2. Hysterectomy FAMILY HISTORY: non contributory SOCIAL HISTORY: Patient is a 1 ppd smoker. Lives with . Needs some ADL and IADL assistance REVIEW OF SYSTEMS: CONSTITUTIONAL: No fevers, chills, night sweats. HEENT: No headaches, visual disturbances. CARDIOVASCULAR: No chest pain or palpitations. RESPIRATORY: + cough, no shortness of breath. GENITOURINARY: No pain or burning with urination. MUSCULOSKELETAL: L hip pain per HPI. GASTROINTESTINAL: No nausea, vomiting, diarrhea. NEUROLOGICAL: + memory loss. PHYSICAL EXAMINATION: VITAL SIGNS: Please see below. GENERAL APPEARANCE: Obese female, appears older than stated age, no acute distress. HEENT: Normocephalic, atraumatic. RESPIRATORY: slightly labored breathing. CARDIOVASCULAR: 2+ DP/PT pulses, brisk capillary refill all digits LLE. EXTREMITIES: Focused exam of the L hip demonstrates a shortened, externally rotated left lower extremity. There is diffuse tenderness about the left hip. Patient is able to flex/extend toes and ankle. Radiographs: Plain radiographs of the left hip demonstrate evidence of a d isplaced left proximal femur fracture. Additional manual traction AP view was obtained which revealed a basicervical femoral neck fx LABORATORY DATA: Please see below. ASSESSMENT: 73 y/o female with a displaced L proximal femur fracture PLAN: 1. Patient to be admitted to hospitalist service for medical optimization. Discussed case with hospitalist Dr. Chavis. Patient with rhabdomyolysis and COPD and may require up to 48 hours for optimization. 2. I discussed with the patient the nature of her injury. Surgical fixation of hip fractures is recommended to minimize the morbidity of being bedbound and allow for early ambulation. The risks of surgery to include pain, infection, nerve/blood vessel injury, hardware failure, periprosthetic fracture, dislocation (if arthroplasty), and anesthesia complications to include were discussed with the patient. 3. Will proceed with CMN vs hemiarthroplasty once medically optimized. Vital Signs/I&O Vital Signs Date Time Temp Pulse Resp B/P (MAP) Pulse Ox O2 Delivery O2 Flow Rate FiO2 06/13/19 20:10 20 95 06/13/19 19:41 124 06/13/19 19:35 Room Air 06/13/19 19:25 98.1 124/87 (99) Laboratory Data Labs 24H Laboratory Tests 2 06/13/19 19:26: Immature Granulocyte % (Auto) 0.6, Neutrophils (%) (Auto) 82.0H, Lymphocytes (%) (Auto) 10.5L, Monocytes (%) (Auto) 6.5H, Eosinophils (%) (Auto) 0.1, Basophils (%) (Auto) 0.3, Neutrophils # (Auto) 14.8H, Lymphocytes # (Auto) 1.9, Monocytes # (Auto) 1.2H, Eosinophils # (Auto) 0.0, Basophils # (Auto) 0.1, Nucleated Red Blood Cells % (auto) 0.0, Urine Color YELLOW, Urine Appearance HAZY, Urine pH 5.0, Urine Specific [place] 1.016, Urine Protein 2+H, Urine Glucose (Auto)(UA) 1+H, Urine Ketones (Auto) TRACEH, Urine Blood 1+H, Urine Nitrite NEGATIVE, Urine Bilirubin NEGATIVE, Urine Urobilinogen 0.2, Urine Leukocyte Esterase (Auto) NEGATIVE, Urine WBC (Auto) 0, Urine RBC (Auto) 0, Urine Hyaline Casts (Auto) 0, Urine Bacteria (Auto) NEGATIVE, Urine Squamous Epithelial Cells 0, Urine Amorphous Sediment (Auto) SMALLH, Urine Mucus (Auto) SMALL, Urine Sperm (Auto) , Anion Gap 9, Glomerular Filtration Rate 47.2, Calcium Level 9.5, Total Bilirubin 1.1H, Direct Bilirubin 0.3H, Aspartate Amino Transf (AST/SGOT) 71H, Alanine Aminotransferase (ALT/SGPT) 36, Alkaline Phosphatase 114, Total Creatine Kinase 2827H, Creatine Kinase MB 20.4H, Creatine Kinase MB Relative Index 0.72, Troponin I 0.02, Total Protein 7.2, Albumin 3.5, Albumin/Globulin Ratio 0.95L CBC/BMP Laboratory Tests 06/13/19 19:26 Allergies Coded Allergies: No Known Allergies (Unverified , 06/13/19) Home Medications Scheduled Atorvastatin Calcium (Atorvastatin Calcium) 40 Mg Tablet, 40 MG PO DAILY, (Reported) Calcium Carbonate/Vitamin D3 (Calcium 600-Vit D3 800 Tablet) 1 Each Tablet, 1 TAB PO DAILY, (Reported) Ergocalciferol (Vitamin D2) (Vitamin D2) 50,000 Units Cap, 50,000 UNITS PO 1XWK, (Reported) Hydrochlorothiazide (Hydrochlorothiazide) 12.5 Mg Capsule, 12.5 MG PO DAILY, (Reported) Lisinopril (Lisinopril) 5 Mg Tablet, 5 MG PO DAILY, (Reported) Metformin HCl (Metformin HCl) 500 Mg Tablet, 1,000 MG PO BID, (Reported) [place]-3/Dha/Epa/Fish Oil (Fish Oil 1,000 mg Softgel) 1 Each Capsule, 1 CAP PO DAILY, (Reported) Potassium Chloride (Potassium Chloride) 10 Meq Tab.er.prt, 10 MEQ PO DAILY, (Reported) Potassium Gluconate (Potassium Gluconate) 99 Mg Tablet, 595 MG PO DAILY, (Reported) Sertraline HCl (Sertraline HCl) 50 Mg Tablet, 50 MG PO DAILY, (Reported) Sitagliptin Phosphate (Januvia) 100 Mg Tablet, 100 MG PO DAILY, (Reported) Scheduled PRN Acetaminophen (Tylenol Extra Strength) 500 Mg Tablet, 1,000 MG PO Q6H PRN for PAIN / FEVER, (Reported) Dicyclomine HCl (Dicyclomine HCl) 10 Mg Capsule, 10 MG PO QID PRN for CRAMPS, (Reported) Docusate Sodium (Docusate Sodium) 100 Mg Capsule, 100 MG PO BID PRN for CONSTIPATION, (Reported) Levalbuterol Tartrate (Levalbuterol Tartrate Hfa) 15 Gm Hfa.aer.ad, 2 PUFF INH Q6H PRN for SHORTNESS OF BREATH, (Reported) Ondansetron (Ondansetron Odt) 4 Mg Tab.rapdis, 8 MG PO Q4H PRN for NAUSEA, (Reported) Promethazine HCl (Promethazine HCl) 25 Mg Tablet, 25 MG PO Q6H PRN for NAUSEA, (Reported) RADU CORADO MD Jun 13, 2019 22:24
[2019-06-14] VITALS: BP 120/82
[2019-06-14] MEDS: methylPREDNISolone INJ 40 MG/1 ML VIAL (J2920) IV SCH ×3 (01:31→17:09)
--- NOTE | 2019-06-14 04:51 | REP ---
Clinical: Trauma. Technique: Portable single view of the left hip. Findings: Left femoral neck fracture noted. Electronically Signed by Navi Van MD 06/14/2019 04:42 A
--- NOTE | 2019-06-14 05:38 | ECGEPIP ---
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
[2019-06-14 05:49] LABS: HEMATOCRIT 44.2 % (36.0-47.0); MEAN CORPUSCULAR HEMOGLOBIN 29.8 pg (27.0-33.0); MEAN CORPUSCULAR HGB CONC 31.7 g/dl (32.0-36.5); PLATELET COUNT, AUTOMATED 235 10^3/uL (150-450); WHITE BLOOD COUNT 16.1 10^3/uL (4.0-10.0)
[2019-06-14 06:00] VITALS: BP 120/82
[2019-06-14] MEDS: HEPARIN SOD (PORCINE) 5000 UNITS/ML VIAL (J1644 PER 1000UNITS) SC SCH ×3 (06:16→21:16)
[2019-06-14 06:26] LABS: BLOOD UREA NITROGEN 22 MG/DL (7-18); CALCIUM LEVEL 9.2 MG/DL (8.8-10.2); CARBON DIOXIDE LEVEL 21 MEQ/L (21-32); CHLORIDE LEVEL 105 MEQ/L (98-107); CPK CREATINE PHOSPHOKINASE 2038 U/L (26-192); CREATININE FOR GFR 0.89 MG/DL (0.55-1.30); GLOMERULAR FILTRATION RATE > 60.0 (>39); GLUCOSE, FASTING 226 MG/DL (70-100); POTASSIUM SERUM 4.3 MEQ/L (3.5-5.1); SODIUM LEVEL 136 MEQ/L (136-145)
[2019-06-14] MEDS: IPRATROPIUM 0.5MG/ALBUTEROL 2.5MG INH SOL UD 3ML (DUONEB)(J7620) NEB SCH ×3 (07:49→20:08)
--- NOTE | 2019-06-14 08:46 | REP ---
Clinical: Fracture. Technique: Axial images through the left hip with coronal and sagittal re-formations. Findings: Transverse femoral neck fracture is appreciated with minimal displacement through the fracture line. Femoral head and acetabulum are in normal position and without associated dislocation. Remainder of the osseous structures of the left hip/pelvis appear intact. Surrounding musculoskeletal structures appear relatively normal and without significant joint effusion or large hematoma. Visualized pelvic structures are unremarkable. Evidence for prior hysterectomy noted. Impression: 1. Transverse femoral neck fracture with minimal displacement of the fracture line. Electronically Signed by Navi Van MD 06/14/2019 08:37 A
[2019-06-14] MEDS: HumaLOG INSULIN (NovoLOG) PER UNIT SC SCH ×3 (08:55→17:09)
[2019-06-14] MEDS: hydroCHLOROthiazide 12.5 MG CAPSULE PO SCH (08:56)
[2019-06-14] MEDS: NS 1,000 ML IV SCH ×2 (08:56→17:09)
[2019-06-14] MEDS: SERTRALINE HCL 50 MG TAB PO SCH (08:56)
[2019-06-14] MEDS: OMEGA-3 1000MG CAPSULE PO SCH (08:56)
[2019-06-14] MEDS ORDERED: lisinopriL 5 MG TAB PO SCH (09:00)
[2019-06-14 14:00] VITALS: BP 134/88
--- NOTE | 2019-06-14 20:30 | IPNPDOC ---
Date Seen The patient was seen on 06/14/19. Progress Note SUBJECTIVE: 73 y.o female w/ PMH of Dementia, COPD, DM, HTN & HLD was admitted for L hip fracture 2/ to fall which was complicated by Rhabodmyolysis because patient was unable to get up for a prolonged period of time. She was also found to have COPD exacerbation for which she is currently being treated. She is evaluated in the morning, comfortable in bed, unaware of her current situation, doesn't recall falling or breaking her hip, doesn't know why she's in the hospital. She reports mild hip pain and slightly increased dyspnea from her baseline along with a dry cough. She denies any CP, N/V/D or abdominal pain. 10 point review of system is negative except for above. PHYSICAL EXAMINATION: VITAL SIGNS: Please see below. GENERAL: No distress HEENT: Normocephalic, atraumatic, moist mucous membranes NECK: Supple CARDIOVASCULAR EXAMINATION: S1, S2, tachycardic RESPIRATORY EXAMINATION: distant, poor air movement, mild wheezing ABDOMINAL EXAMINATION: Soft, nontender, nondistended, positive bowel sounds EXTREMITIES: Range of motion limited due to pain SKIN: No rash NEUROLOGICAL EXAMINATION: Alert and oriented 2, no focal deficits PSYCHIATRIC EXAMINATION: Calm and cooperative LABORATORY DATA, IMAGING STUDIES, MICROBIOLOGY: Please see below. ASSESSMENT AND PLAN: 73 y.o female w/ multiple medical comorbidities is admitted for L hip fracture, Rhabdomyolysis & COPD exacerbation. PROBLEMS: 1. Hip fracture: L femoral neck fracture w/ minimal displacement, evaluated by Orthopedic surgery, tentatively plan for surgery later this week when she is medically cleared, I suspect she will be cleared for surgery within the next 24 hours, pain control. 2. COPD exacerbation: continue IV steroids for now, duoneb PRN, supplemental oxygen as needed to maintain O2 sats between 88-92% 3. traumatic Rhabdomyolysis: secondary to fall, CPK trending down, continue IV hydration. 4. DM: continue sliding scale insulin coverage with meals & at bedtime. 5. HTN: continue HCTZ DVT Prophylaxis: Heparin SubQ GI prophylaxis: not needed VS, I&O, 24H, Fishbone Vital Signs/I&O Vital Signs Date Time Temp Pulse Resp B/P (MAP) Pulse Ox O2 Delivery O2 Flow Rate FiO2 06/14/19 14:00 98.3 116 20 134/88 (103) 91 Nasal Cannula 2.0 I&O- Last 24 Hours up to 6 AM 06/14/19 06:00 Intake Total 1735 ml Output Total 0 ml Balance 1735 ml Laboratory Data 24H LABS Laboratory Tests 2 06/14/19 00:17: Bedside Glucose (Misc Panel) 187H 06/14/19 05:32: Nucleated Red Blood Cells % (auto) 0.0, Anion Gap 10, Glomerular Filtration Rate > 60.0, Calcium Level 9.2, Total Creatine Kinase 203806/14/19 11:49: Bedside Glucose (Misc Panel) 202H 06/14/19 16:19: Bedside Glucose (Misc Panel) 209H CBC/BMP Laboratory Tests 06/14/19 05:32 CATRINA GARCIA MD Jun 14, 2019 20:30
[2019-06-14 22:00] VITALS: BP 124/88
[2019-06-15] MEDS: methylPREDNISolone INJ 40 MG/1 ML VIAL (J2920) IV SCH (01:05)
[2019-06-15] MEDS: IPRATROPIUM 0.5MG/ALBUTEROL 2.5MG INH SOL UD 3ML (DUONEB)(J7620) NEB SCH ×2 (01:27→07:45)
[2019-06-15] MEDS: HEPARIN SOD (PORCINE) 5000 UNITS/ML VIAL (J1644 PER 1000UNITS) SC SCH (04:44)
[2019-06-15 05:00] VITALS: BP 126/84
[2019-06-15] MEDS: NS 1,000 ML IV SCH (06:00)
[2019-06-15] MEDS ORDERED: ceFAZolin SOD 2 GM in IV 1 EA IV ONE (06:00)
[2019-06-15 07:22] LABS: HEMATOCRIT 40.6 % (36.0-47.0); HEMOGLOBIN 13.1 g/dl (12.0-15.5); MEAN CORPUSCULAR HEMOGLOBIN 30.5 pg (27.0-33.0); MEAN CORPUSCULAR HGB CONC 32.3 g/dl (32.0-36.5); MEAN CORPUSCULAR VOLUME 94.6 fl (80.0-96.0); PLATELET COUNT, AUTOMATED 237 10^3/uL (150-450); RED BLOOD COUNT 4.29 10^6/uL (4.00-5.40); WHITE BLOOD COUNT 14.7 10^3/uL (4.0-10.0)
[2019-06-15] MEDS: HumaLOG INSULIN (NovoLOG) PER UNIT SC SCH ×3 (07:30→15:34)
[2019-06-15 07:55] LABS: BLOOD UREA NITROGEN 22 MG/DL (7-18); CALCIUM LEVEL 9.1 MG/DL (8.8-10.2); CARBON DIOXIDE LEVEL 23 MEQ/L (21-32); CHLORIDE LEVEL 103 MEQ/L (98-107); CPK CREATINE PHOSPHOKINASE 781 U/L (26-192); CREATININE FOR GFR 0.79 MG/DL (0.55-1.30); GLOMERULAR FILTRATION RATE > 60.0 (>39); GLUCOSE, FASTING 215 MG/DL (70-100); MAGNESIUM LEVEL 1.7 MG/DL (1.8-2.4); PHOSPHORUS LEVEL 3.5 MG/DL (2.5-4.9); POTASSIUM SERUM 4.4 MEQ/L (3.5-5.1); SODIUM LEVEL 137 MEQ/L (136-145)
--- NOTE | 2019-06-15 08:43 | IPNPDOC ---
Date Seen The patient was seen on 06/15/19. Progress Note SUBJECTIVE: 73 y.o female w/ PMH of Dementia, COPD, DM, HTN & HLD was admitted for L hip fracture 2/ to fall which was complicated by Rhabodmyolysis because patient was unable to get up for a prolonged period of time. She was also found to have COPD exacerbation for which she is currently being treated. She is evaluated in the morning, comfortable in bed, unaware of her current situation, doesn't recall falling or breaking her hip, doesn't know why she's in the hospital. She reports mild hip pain and slightly increased dyspnea from her baseline along with a dry cough. She denies any CP, N/V/D or abdominal pain. 06/15/19 Patient seen in the morning, no acute events overnight, appears uncomfortable due to left hip pain, dyspnea and cough have improved, no longer requiring any supplemental oxygen. Due to her poor memory/dementia she has been unable to request pain medication when she needs it, has not received anything over the past 24 hours. She denies any chest pain, headache, vomiting, abdominal pain or diarrhea. She does report severe nausea. 10 point review of system is negative except for above. PHYSICAL EXAMINATION: VITAL SIGNS: Please see below. GENERAL: No distress HEENT: Normocephalic, atraumatic, moist mucous membranes NECK: Supple CARDIOVASCULAR EXAMINATION: S1, S2, tachycardic RESPIRATORY EXAMINATION:. Diminished, clear to auscultation, no wheezing ABDOMINAL EXAMINATION: Soft, nontender, nondistended, positive bowel sounds EXTREMITIES: Range of motion limited due to pain SKIN: No rash NEUROLOGICAL EXAMINATION: Alert and oriented 2, no focal deficits PSYCHIATRIC EXAMINATION: Calm and cooperative LABORATORY DATA, IMAGING STUDIES, MICROBIOLOGY: Please see below. ASSESSMENT AND PLAN: 73 y.o female w/ multiple medical comorbidities is admitted for L hip fracture, Rhabdomyolysis & COPD exacerbation. PROBLEMS: 1. Hip fracture: L femoral neck fracture w/ minimal displacement, change Percocet to scheduled dosing as patient is unable to request for pain medication when needed, patient is medically cleared for surgery at this time, possibly going to the OR later today. 2. COPD exacerbation: Switch to prednisone, will taper quickly, duoneb PRN, supp lemental oxygen as needed to maintain O2 sats between 88-92% 3. traumatic Rhabdomyolysis: secondary to fall, CPK trending down, continue IV hydration. 4. DM: continue sliding scale insulin coverage with meals & at bedtime. 5. HTN: continue HCTZ DVT Prophylaxis: Heparin SubQ GI prophylaxis: not needed VS, I&O, 24H, Fishbone Vital Signs/I&O Vital Signs Date Time Temp Pulse Resp B/P (MAP) Pulse Ox O2 Delivery O2 Flow Rate FiO2 06/15/19 05:00 98.3 116 18 126/84 (98) 92 Room Air 06/14/19 22:00 0.5 I&O- Last 24 Hours up to 6 AM 06/15/19 06:00 Intake Total 390 ml Output Total 250 ml Balance 140 ml Laboratory Data 24H LABS Laboratory Tests 2 06/14/19 11:49: Bedside Glucose (Misc Panel) 202H 06/14/19 16:19: Bedside Glucose (Misc Panel) 209H 06/14/19 20:48: Bedside Glucose (Misc Panel) 201H 06/15/19 06:46: Nucleated Red Blood Cells % (auto) 0.0, Anion Gap 11, Glomerular Filtration Rate > 60.0, Calcium Level 9.1, Phosphorus Level 3.5, Magnesium Level 1.7L, Total Creatine Kinase 781H CBC/BMP Laboratory Tests 06/15/19 06:46 CATRINA GARCIA MD Jun 15, 2019 08:43
[2019-06-15] MEDS: MAG SULF 1GM/100ML (MAG RUN) 1 GM in IV 1 EA IV SCH ×2 (09:32→10:46)
[2019-06-15] MEDS: SERTRALINE HCL 50 MG TAB PO SCH (09:33)
[2019-06-15] MEDS: predniSONE 50 MG TAB PO SCH (09:33)
[2019-06-15] MEDS: hydroCHLOROthiazide 12.5 MG CAPSULE PO SCH (09:33)
[2019-06-15] MEDS: OMEGA-3 1000MG CAPSULE PO SCH (09:33)
[2019-06-15] MEDS: PERCOCET 5MG/325MG TAB PO SCH ×4 (09:33→23:53)
[2019-06-15] MEDS ORDERED: ceFAZolin 1GM INJ (J0690 PER 500MG) As Ordered ONE (13:13)
[2019-06-15] MEDS ORDERED: EPINEPHrine INJ 1 MG/ML 1ML VIAL As Ordered ONE (13:13)
[2019-06-15 14:40] VITALS: BP 111/83
[2019-06-15] MEDS ORDERED: ceFAZolin 2 GM/D5W 50 ML IV BAG (J0690 PER 500MG) As Ordered ONE (15:12)
[2019-06-15] MEDS ORDERED: HumaLOG INSULIN (NovoLOG) PER UNIT As Ordered ONE (15:32)
[2019-06-15] MEDS ORDERED: ALBUTEROL SULFATE 2.5 MG/0.5 ML INH NEB SOLN As Ordered ONE (15:36)
[2019-06-15] MEDS ORDERED: LIDOCAINE 2% INJ 100 MG/5 ML SDV (FOR ANES.) As Ordered ONE (15:37)
[2019-06-15] MEDS ORDERED: propofoL 200 MG/20 ML VIAL As Ordered ONE ×2 (15:37→16:46)
[2019-06-15] MEDS ORDERED: MIDAZOLAM INJ 2 MG/2 ML VIAL (J2250) As Ordered ONE (15:40)
[2019-06-15] MEDS ORDERED: LR 1,000 ML IV ONE (16:00)
[2019-06-15] MEDS ORDERED: ALBUTEROL SULFATE 2.5 MG/0.5 ML INH NEB SOLN INH ONE (16:00)
[2019-06-15] MEDS ORDERED: fentaNYL 100 MCG/2 ML INJECTION (J3010) As Ordered ONE (16:06)
[2019-06-15] MEDS ORDERED: NORCO, ANEXSIA 5/325MG TABLET (HYDROcodone/ACETAMINOPHEN) PO PRN ×2 (16:30)
[2019-06-15] MEDS ORDERED: PILL CUTTER 1 EACH XX PRN (16:30)
[2019-06-15] MEDS ORDERED: ACETAMINOPHEN 1000MG 100ML IV BTL (OFIRMEV) (J0131 PER 10MG) As Ordered ONE (16:45)
[2019-06-15] MEDS ORDERED: ONDANSETRON 4MG/2ML VIAL (J2405) As Ordered ONE (16:54)
[2019-06-15] MEDS ORDERED: ONDANSETRON 4MG/2ML VIAL (J2405) IV PRN (18:30)
[2019-06-15] MEDS ORDERED: PERCOCET 5MG/325MG TAB PO PRN (18:30)
[2019-06-15] MEDS ORDERED: fentaNYL 100 MCG/2 ML INJECTION (J3010) IV PRN (18:30)
[2019-06-15] MEDS ORDERED: METOCLOPRAMIDE INJ 10MG/2ML VIAL (J2765) IV PRN (18:30)
[2019-06-15] MEDS ORDERED: LR 1,000 ML IV SCH (18:30)
[2019-06-15 18:55] VITALS: BP 137/86
[2019-06-15 19:30] VITALS: BP 128/76
[2019-06-15 20:40] VITALS: BP 121/74
[2019-06-15 21:40] VITALS: BP 115/72
[2019-06-15] MEDS: ONDANSETRON 4MG/2ML VIAL (J2405) IV PRN (22:24)
[2019-06-15] MEDS: MORPHINE 4 MG/ML 1ML VIAL/SYRINGE (J2270) IV PRN (22:24)
[2019-06-15] MEDS: ceFAZolin SOD 2 GM in IV 1 EA IV SCH (23:53)
[2019-06-16] MEDS: IPRATROPIUM 0.5MG/ALBUTEROL 2.5MG INH SOL UD 3ML (DUONEB)(J7620) NEB PRN ×2 (00:13→07:25)
[2019-06-16 01:37] VITALS: BP 116/72
[2019-06-16 01:38] VITALS: BP 116/72
[2019-06-16 04:23] VITALS: BP 117/72
[2019-06-16] MEDS: MORPHINE 4 MG/ML 1ML VIAL/SYRINGE (J2270) IV PRN (04:39)
[2019-06-16] MEDS: ONDANSETRON 4MG/2ML VIAL (J2405) IV PRN (04:39)
[2019-06-16] MEDS: PERCOCET 5MG/325MG TAB PO SCH (05:16)
[2019-06-16] MEDS ORDERED: SENNA 8.6 MG TAB (SENOKOT) PO SCH (06:30)
[2019-06-16] MEDS ORDERED: PERCOCET 5MG/325MG TAB PO PRN ×2 (06:30)
[2019-06-16] MEDS ORDERED: XARE10TA PO (07:14)
[2019-06-16] MEDS ORDERED: PERC5TAB12 PO (07:14)
[2019-06-16] MEDS ORDERED: RIVAROXABAN 10 MG TAB (XARELTO) PO SCH ×3 (08:00→18:00)
--- NOTE | 2019-06-16 08:01 | RO ---
DATE OF PROCEDURE: 06/15/2019 PREPROCEDURE DIAGNOSIS: Left femoral neck fracture. POSTPROCEDURE DIAGNOSIS: Left femoral neck fracture. PROCEDURE: Left hip cemented hemiarthroplasty using a Size 6 [place] stem with Tobramycin antibiotic cement, +5 neck, 44 mm ball. Prosthesis made by [employer]. SURGEON: Dr. Bibi Chambers SOCK LINER: Devan Marilyn Pascal ANESTHESIA: Spinal. ESTIMATED BLOOD LOSS: Less than 200 mL. SPECIMEN: Femoral head. COMPLICATIONS: None. FINDINGS: She had a displaced unstable femoral neck fracture with a spike actually right down to the lesser trochanter. PROCEDURE: Antibiotics were given intravenously preoperatively and a successful spinal anesthetic was induced. She was placed in a lateral decubitus position with down leg well padded, especially the peroneal nerve. An axillary roll was utilized. The [place] hip positioner was utilized. The left hip area was carefully prepped and draped in the usual sterile fashion. After an appropriate time out, a longitudinal incision was made for a direct lateral approach to the hip. Bovie cautery was used to coagulate crossing vessels down to the tensor fascia. The tensor fascia divided in line with the skin incision. Then we split the gluteus medius anterior 1/3 posterior 2/3 junction, dissecting down to the gluteus minimus and then the anterior hip capsule, carefully dissected off the proximal femur anteriorly. Then we were able to externally rotate the hip through the fracture site and place the leg in the leg bag anteriorly. The piriformis fossa was identified and then the starter reamer was utilized and the canal finding reamer and then the lateralizing reamer. Then we reamed up to a size 6. Femoral neck osteotomy was performed using the template. We then used the box osteotome to estimate our version and we began broaching up to a size 6. We were right down on to the lesser trochanter. The femoral head was removed and measured at 44 mm. We then placed the trial 0 with a 44 ball and reduced the hip. She was actually very stable, but it reduced quite easily and because we were down right on the lesser trochanter I felt the +5 would probably be best, but nonetheless we elected to trial off the real stem. At this point, I removed the broach, copiously irrigated out the femoral canal and the acetabulum, placed the cement restrictor down the femoral canal after measuring off the real prosthesis and then trialing using a size 4 cement restrictor. The canal brush was placed down the femoral canal and we used that to irrigate out the femoral canal of the excess bony debris. Ms. Marilyn Pascal then mixed the cement on the back table and into the cement gun as I continued to prepare the femoral canal for cement. We copiously irrigated again and scrubbed and then dried it thoroughly. I used a Eddie tip sucker under continuous suction as I placed three epinephrine soaked sponges down the femoral canal. Then removed those and replaced them with two dry sponges to thoroughly dry the canal. Two sponges were placed on the acetabulum to protect it from cement extrusion and then once the cement was ready I placed the cement down the femoral canal. The centralizer was placed on the stem. The real stem was then placed and excess cement removed proximally with the curette. Then I held the stem in anatomic position against the calcar until the cement hardened. We copiously irrigated the wound as we were awaiting for the cement to harden. We removed the two sponges from the acetabulum. Then we decided to trial with the +5 and the +5 actually went in quite easily and she was very stable to flexion and internal rotation and extension and external rotation. I felt this to be the appropriate size. There was no soft tissue telescoping of significance. Thus, we then dislocated the hip once again, dried the trunnion of the stem and placed the real +5 sleeve and the 44 ball and impacted it into place, irrigated the acetabulum once again and then reduced the hip. Then we began closing anatomically the gluteus medius and gluteus minimus back anatomically to the trochanter with several interrupted #1 PDS sutures, irrigating between layers. Closed the vastus lateralis back anatomically with several #1 PDS sutures, irrigating between layers. Closed the tensor fascia with two #1 PDS sutures distally and then a running single arm Stratafix, irrigating between layers. Then we closed the deep subdermal tissues with interrupted #2-0 PDS suture. The skin was closed with jose and covered by an Optifoam and dry sterile bulky dressing. She was then turned supine and then transferred to the recovery room in stable condition. There were no intraoperative complications. Ms. Marilyn Pascal was critical to the success of this difficult procedure by helping with appropriate soft tissue manipulation, helping to reduce and dislocate the hip several times, helping to mix the cement, helping to prepare the patient, as well as, helping to close the wound, amongst many other tasks to allow me to perform the operation smoothly, efficiently and safely.
--- NOTE | 2019-06-16 08:34 | REP ---
Left hip: Two views. History: Postop x-ray. Comparison study: June 13, 2019. Findings: A PA and lateral views of the left hip demonstrate left femoral head replacement in good position. Lateral skin jose are noted. Electronically Signed by Compa Fang MD 06/16/2019 08:25 A
[2019-06-16] MEDS: HumaLOG INSULIN (NovoLOG) PER UNIT SC SCH (08:49)
[2019-06-16] MEDS: ceFAZolin SOD 2 GM in IV 1 EA IV SCH (08:50)
[2019-06-16] MEDS: predniSONE 50 MG TAB PO SCH (08:52)
[2019-06-16] MEDS: OMEGA-3 1000MG CAPSULE PO SCH (08:52)
[2019-06-16] MEDS: hydroCHLOROthiazide 12.5 MG CAPSULE PO SCH (08:52)
[2019-06-16] MEDS: SERTRALINE HCL 50 MG TAB PO SCH (08:53)
[2019-06-16] MEDS ORDERED: MIRALAX *UNIT DOSE* 17GM PACKET PO SCH (09:00)
[2019-06-16 09:29] LABS: HEMOGLOBIN 12.1 g/dl (12.0-15.5); MEAN CORPUSCULAR HEMOGLOBIN 30.2 pg (27.0-33.0); MEAN CORPUSCULAR HGB CONC 31.8 g/dl (32.0-36.5); MEAN CORPUSCULAR VOLUME 94.8 fl (80.0-96.0); PLATELET COUNT, AUTOMATED 260 10^3/uL (150-450); RED BLOOD COUNT 4.01 10^6/uL (4.00-5.40); WHITE BLOOD COUNT 13.3 10^3/uL (4.0-10.0)
[2019-06-16 09:59] LABS: BLOOD UREA NITROGEN 23 MG/DL (7-18); CALCIUM LEVEL 8.8 MG/DL (8.8-10.2); CARBON DIOXIDE LEVEL 28 MEQ/L (21-32); CHLORIDE LEVEL 102 MEQ/L (98-107); CREATININE FOR GFR 0.92 MG/DL (0.55-1.30); GLOMERULAR FILTRATION RATE > 60.0 (>39); GLUCOSE, FASTING 215 MG/DL (70-100); POTASSIUM SERUM 3.9 MEQ/L (3.5-5.1); SODIUM LEVEL 136 MEQ/L (136-145)
[2019-06-16] MEDS ORDERED: PRED10TA2 PO (10:45)
--- NOTE | 2019-06-16 11:06 | DS.PDOC ---
Discharge Summary General Date of Admission Jun 13, 2019 at 22:00 Date of Discharge 06/16/19 Attending Physician: CATRINA GARCIA MD Discharge Summary PROCEDURES PERFORMED DURING STAY: Left cemented hemiarthroplasty ADMITTING DIAGNOSES: 1. Rhabdomyolysis, left hip fracture, COPD exacerbation. DISCHARGE DIAGNOSES: 1. Rhabdomyolysis, left hip fracture, COPD exacerbation. COMPLICATIONS/CHIEF COMPLAINT: Acute Exacerbation Of Copd, Closed Left Hip Fx. HISTORY OF PRESENT ILLNESS: 73-year-old female with an extensive past medical history, was admitted status post fall leading to rhabdomyolysis from staying on the floor for prolonged period of time and left hip fracture. Patient was treated with IV hydration with significant clinical improvement. She underwent left cemented hemiarthroplasty yesterday. Her pain is well controlled on the current regimen, without any complaints at this time. She was also found to have COPD exacerbation at the time of admission, has improved significantly with treatment, will be discharged on prednisone taper. Of note, patient having urinary retention today, having significant difficulty with moving/ambulating due to pain. Patient will be discharged with Singh catheter and advised to follow with urology within 1-2 weeks. Patient has been accepted to [facility] and will be discharged there later today. Patient is clinically and hemodynamically stable for discharge at this time. HOSPITAL COURSE: As above. DISCHARGE MEDICATIONS: Please see below. ALLERGIES: Please see below. PHYSICAL EXAMINATION: VITAL SIGNS: Please see below. GENERAL: No distress HEENT: Normocephalic, atraumatic, moist mucous membranes NECK: Supple CARDIOVASCULAR EXAMINATION: S1, S2, tachycardic RESPIRATORY EXAMINATION:. Diminished, clear to auscultation, mild expiratory wheezing ABDOMINAL EXAMINATION: Soft, nontender, nondistended, positive bowel sounds EXTREMITIES: Range of motion limited due to pain SKIN: No rash NEUROLOGICAL EXAMINATION: Alert and oriented 2, no focal deficits PSYCHIATRIC EXAMINATION: Calm and cooperative LABORATORY DATA: Please see below. IMAGING: X-ray/CT showing left femoral neck fracture PROGNOSIS: Fair ACTIVITY: As tolerated, ambulate with walker. DIET: Cardiac DISCHARGE PLAN: Follow with orthopedic surgery PCP and urology within 1-2 weeks DISPOSITION: [facility]. DISCHARGE INSTRUCTIONS: 1. As above. DISCHARGE CONDITION: Stable. TIME SPENT ON DISCHARGE: Greater than 34 minutes. Vital Signs/I&Os Vital Signs Date Time Temp Pulse Resp B/P (MAP) Pulse Ox O2 Delivery O2 Flow Rate FiO2 06/16/19 09:50 16 06/16/19 04:23 97.6 105 117/72 (87) 90 Room Air 06/15/19 20:40 2.0 I&O- Last 24 Hours up to 6 AM 06/16/19 06:00 Intake Total 1310 ml Output Total 900 ml Balance 410 ml Laboratory Data Labs 24H Laboratory Tests 2 06/15/19 11:53: Bedside Glucose (Misc Panel) 259H 06/15/19 15:24: Bedside Glucose (Misc Panel) 261H 06/15/19 17:53: Bedside Glucose (Misc Panel) 179H 06/16/19 07:40: Bedside Glucose (Misc Panel) 204H 06/16/19 09:07: Nucleated Red Blood Cells % (auto) 0.0, Anion Gap 6L, Glomerular Filtration Rate > 60.0, Calcium Level 8.8 CBC/BMP Laboratory Tests 06/16/19 09:07 FSBS Laboratory Tests Test 06/15/19 11:53 06/15/19 15:24 06/15/19 17:53 06/16/19 07:40 Range/Units Bedside Glucose (Misc Panel) 259 261 179 204 83-110 MG/DL Discharge Medications Scheduled Atorvastatin Calcium (Atorvastatin Calcium) 40 Mg Tablet, 40 MG PO DAILY, (Reported) Calcium Carbonate/Vitamin D3 (Calcium 600-Vit D3 800 Tablet) 1 Each Tablet, 1 TAB PO DAILY, (Reported) Ergocalciferol (Vitamin D2) (Vitamin D2) 50,000 Units Cap, 50,000 UNITS PO 1XWK, (Reported) Hydrochlorothiazide (Hydrochlorothiazide) 12.5 Mg Capsule, 12.5 MG PO DAILY, (Reported) Lisinopril (Lisinopril) 5 Mg Tablet, 5 MG PO DAILY, (Reported) Metformin HCl (Metformin HCl) 500 Mg Tablet, 1,000 MG PO BID, (Reported) Chandler-3/Dha/Epa/Fish Oil (Fish Oil 1,000 mg Softgel) 1 Each Capsule, 1 CAP PO DAILY, (Reported) Potassium Chloride (Potassium Chloride) 10 Meq Tab.er.prt, 10 MEQ PO DAILY, (Reported) Potassium Gluconate (Potassium Gluconate) 99 Mg Tablet, 595 MG PO DAILY, (Reported) Prednisone (Prednisone) 10 Mg Tablet, 1 TAB PO DAILY Taper: Take 4 tabs daily x2 days, then 3 tabs daily x2 days then 2 tabs daily x2 days then 1 tab daily x2 days. Rivaroxaban (Xarelto) 10 Mg Tablet, 10 MG PO DAILY Sertraline HCl (Sertraline HCl) 50 Mg Tablet, 50 MG PO DAILY, (Reported) Sitagliptin Phosphate (Januvia) 100 Mg Tablet, 100 MG PO DAILY, (Reported) Scheduled PRN Acetaminophen (Tylenol Extra Strength) 500 Mg Tablet, 1,000 MG PO Q6H PRN for PAIN / FEVER, (Reported) Dicyclomine HCl (Dicyclomine HCl) 10 Mg Capsule, 10 MG PO QID PRN for CRAMPS, (Reported) Docusate Sodium (Docusate Sodium) 100 Mg Capsule, 100 MG PO BID PRN for CONSTIP ATION, (Reported) Levalbuterol Tartrate (Levalbuterol Tartrate Hfa) 15 Gm Hfa.aer.ad, 2 PUFF INH Q6H PRN for SHORTNESS OF BREATH, (Reported) Ondansetron (Ondansetron Odt) 4 Mg Tab.rapdis, 8 MG PO Q4H PRN for NAUSEA, (Reported) Oxycodone HCl/Acetaminophen (Percocet 5-325 mg Tablet) 1 Each Tablet, 1 TAB PO Q4H PRN for PAIN Promethazine HCl (Promethazine HCl) 25 Mg Tablet, 25 MG PO Q6H PRN for NAUSEA, (Reported) Allergies Coded Allergies: No Known Allergies (Unverified , 06/13/19) CATRINA GARCIA MD Jun 16, 2019 11:06
== END 2019-06-16 12:10 | DRG 956 ==
LOC: EDBD 18:26 → M ED 18:26 → M ED INP 22:00 → M MS5PR 23:55
PROVIDERS: ADMIT Internal Medicine; ATTEND Internal Medicine
PROC: 0SRS019 Replacement of Left Hip Joint, Femoral Surface with Metal Synthetic Substitute, Cemented, Open Approach (ICD-10-PCS; principal; 2019-06-15 16:00)
DX: S72.042A Displaced fracture of base of neck of left femur, initial encounter for closed fracture (principal); T79.6XXA Traumatic ischemia of muscle, initial encounter; J44.1 Chronic obstructive pulmonary disease with (acute) exacerbation; F03.91 Unspecified dementia, unspecified severity, with behavioral disturbance; Z79.899 Other long term (current) drug therapy; R91.8 Other nonspecific abnormal finding of lung field; E11.9 Type 2 diabetes mellitus without complications; R29.6 Repeated falls; F17.210 Nicotine dependence, cigarettes, uncomplicated; E78.5 Hyperlipidemia, unspecified; I10 Essential (primary) hypertension; W18.30XA Fall on same level, unspecified, initial encounter; Y92.009 Unspecified place in unspecified non-institutional (private) residence as the place of occurrence of the external cause

== ENCOUNTER → 2019-06-19 | Outpatient (REF) ==
[~2019-06-19] MED LIST changes: +ACET-897 PO; +CALC1TAB29 PO; +DICY1CAP8 PO; +DOCU100C16 PO; +JANU100T PO; +LEVA45AE INH; +METF-839 PO; +OMEG10002 PO; +ONDA4TAB6 PO; +PERC5TAB12 PO; +POTA10TA67 PO; +POTA99TA10 PO; +PRED10TA2 PO; +PROM25TA12 PO; +SERT50TA29 PO; +VITA50005 PO; +XARE10TA PO
[2019-06-19 07:24] LABS: BLOOD UREA NITROGEN 35 MG/DL (7-18); CALCIUM LEVEL 9.9 MG/DL (8.8-10.2); CARBON DIOXIDE LEVEL 31 MEQ/L (21-32); CHLORIDE LEVEL 96 MEQ/L (98-107); CREATININE FOR GFR 0.96 MG/DL (0.55-1.30); GLOMERULAR FILTRATION RATE > 60.0 (>39); GLUCOSE, FASTING 160 MG/DL (70-100); POTASSIUM SERUM 4.2 MEQ/L (3.5-5.1); SODIUM LEVEL 135 MEQ/L (136-145)
[2019-06-19 07:45] LABS: HEMOGLOBIN A1c 8.6 %
== END ==
LOC: SKLAB5 08:29
PROVIDERS: ATTEND Internal Medicine
DX: E11.9 Type 2 diabetes mellitus without complications (principal); I10 Essential (primary) hypertension

== ENCOUNTER → 2019-06-29 | Outpatient (REF) ==
[2019-06-29 09:43] LABS: ALBUMIN 3.1 GM/DL (3.2-5.2); ALT/SGPT 29 U/L (12-78); BLOOD UREA NITROGEN 26 MG/DL (7-18); CARBON DIOXIDE LEVEL 26 MEQ/L (21-32); CHLORIDE LEVEL 101 MEQ/L (98-107); CREATININE FOR GFR 0.93 MG/DL (0.55-1.30); GLOMERULAR FILTRATION RATE > 60.0 (>39); GLUCOSE, FASTING 154 MG/DL (70-100); POTASSIUM SERUM 4.8 MEQ/L (3.5-5.1); SODIUM LEVEL 135 MEQ/L (136-145); TOTAL PROTEIN 6.6 GM/DL (6.4-8.2)
== END ==
LOC: SKLAB5 07:59
PROVIDERS: ATTEND Internal Medicine
DX: J44.9 Chronic obstructive pulmonary disease, unspecified (principal)

== ENCOUNTER → 2019-07-06 | Outpatient (REF) ==
[2019-07-06 10:39] LABS: ALBUMIN 3.1 GM/DL (3.2-5.2); ALT/SGPT 25 U/L (12-78); BILIRUBIN,TOTAL 0.8 MG/DL (0.2-1.0); BLOOD UREA NITROGEN 19 MG/DL (7-18); CALCIUM LEVEL 9.7 MG/DL (8.8-10.2); CARBON DIOXIDE LEVEL 24 MEQ/L (21-32); CHLORIDE LEVEL 105 MEQ/L (98-107); CREATININE FOR GFR 0.83 MG/DL (0.55-1.30); GLOMERULAR FILTRATION RATE > 60.0 (>39); GLUCOSE, FASTING 164 MG/DL (70-100); POTASSIUM SERUM 4.6 MEQ/L (3.5-5.1); SODIUM LEVEL 137 MEQ/L (136-145); TOTAL PROTEIN 6.5 GM/DL (6.4-8.2)
== END ==
LOC: SKLAB5 07:42
PROVIDERS: ATTEND Internal Medicine
DX: J44.9 Chronic obstructive pulmonary disease, unspecified (principal)

== ENCOUNTER → 2020-02-23 | Outpatient (CLI) | payer MEDICARE ==
--- NOTE | 2020-02-23 14:22 | REP ---
INDICATION: COPD UNSPECIFIED. COMPARISON: 04/12/2015 the latest prior TECHNIQUE: Axial noncontrast images from the thoracic inlet to the upper abdomen using low-dose lung screening technique (LDCT). As per the protocol only lung window images were sent to the read station for interpretation. FINDINGS: There is a spiculated nodule in the left upper lobe which measures 1.5 cm. This has increased in size when compared to the prior exam when it measured 8 mm. There is a subtle potential asymmetric density in the right lung base measuring 1 cm but difficult to evaluate using this low-dose screening CT protocol. In the right upper lobe there is an 8 mm size nodule. This represents a change from the prior exam. There is evidence of early cylindrical bronchiectasis. A few curvilinear densities are seen in the right lung base fibrotic versus subsegmental atelectatic changes. These have increased slightly from the prior exam. There are emphysematous changes status quo. Limited evaluation of the mediastinum shows possible adenopathy with evidence to suggest 1.2 cm sized lymph node in the aortic pulmonary window. IMPRESSION: 1. Spiculated left upper lobe nodule as described above. 2. Right upper lobe nodule as described above. 3. Right lung base changes as described above. 4. Early cylindrical bronchiectasis. 5. Mediastinal adenopathy is suspected as described above. 6. According to the revised Fleischner society criteria a diagnostic contrast-enhanced CT examination of the chest is recommended. Neoplastic change cannot be ruled out. <Electronically signed by Anibal Reyes > 02/23/20 [id number]
== END ==
LOC: M RAD 13:11
PROVIDERS: ATTEND Internal Medicine Pulmonary Disease
DX: Z12.2 Encounter for screening for malignant neoplasm of respiratory organs (principal); F17.210 Nicotine dependence, cigarettes, uncomplicated; J44.9 Chronic obstructive pulmonary disease, unspecified; R91.8 Other nonspecific abnormal finding of lung field

== ENCOUNTER → 2020-07-03 | Outpatient (CLI) | payer MEDICARE ==
[~2020-07-03] MED LIST changes: +ISOVUE-370 76% 100ML VIAL As Ordered ONE; -LISI-542 PO; +LISI-898 PO; -PEG1POW PO; +POLY17PO18 PO
--- NOTE | 2020-07-03 13:35 | REP ---
INDICATION: COPD. COMPARISON: Multiple, all reviewed, the latest 02/23/2020 a low-dose screening CT examination of the lungs TECHNIQUE: Standard contrast-enhanced helical CT of the chest after the intravenous administration of 100 cc of Isovue 370. FINDINGS: There is left hilar adenopathy. There is mediastinal adenopathy in the aortic pulmonary window. There is no significant change in appearance of the imaged upper abdomen when compared to the 05/12/2019 CT since latest prior CT was obtained with lung window technique only as per the protocol. There is no significant change in appearance of the imaged osseous structures. Evaluation of the lung delgado shows a large irregular and spiculated left upper lobe mass which measures approximately 4.4 by 3 by 2.6 cm. Scattered suspected airspace opacities are also seen in the left upper lobe. This represents a change. There are numerable scattered additional left upper lobe nodules and the largest measuring approximately 1.5 cm. There is a right upper lobe nodule which measures 1 cm and now seen with increased density and irregular margins. This previously measured 8 mm. There is a new nodule in the left lower lobe which measures 6 mm. Once again, there are chronic lung field changes seen with cylindrical bronchiectasis. IMPRESSION: 1. There is a large left upper lobe mass with related left upper lobe findings as described above. 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 2. Enlarging right upper lobe nodule as described above. 3. New left lower lobe nodule as described above. 4. Patchy airspace left upper lobe opacities possibly secondary to pneumonitis. 5. Bronchiectasis. 6. Adenopathy. 7. These findings were discussed with Dr. Emeterio Jimenez at the time of this dictation. <Electronically signed by Anibal Reyes > 07/03/20 [id number]
== END ==
LOC: M RAD 12:29
PROVIDERS: ATTEND Internal Medicine Pulmonary Disease
DX: J44.9 Chronic obstructive pulmonary disease, unspecified (principal)
CPT/HCPCS: 71260; Q9967

== ENCOUNTER 2020-08-07 09:54 | Emergency (ER) | payer MEDICARE ==
[~2020-08-07] VITALS: Ht 154.9 cm; Wt 90.9 kg
[~2020-08-07 09:54] MED LIST changes: -LIDOCAINE 1% MDV 20ML VIAL As Ordered ONE; -oxygen
--- NOTE | 2020-08-07 11:08 | REP ---
INDICATION: hypoxia while off home oxygen, known mass. COMPARISON: CT 07/03/2020. TECHNIQUE: Single portable AP view of the chest was performed. FINDINGS: Left lung nodules are again noted as well as a left hilar adenopathy. There are streaky interstitial densities in the left upper lobe as seen on prior CT. There is no definite acute infiltrate. Cardiac silhouette is mildly prominent. There are degenerative changes of the spine. IMPRESSION: Left lung nodules, left hilar adenopathy and streaky interstitial left upper lobe opacities appear similar to prior CT, with no definite superimposed acute infiltrate. <Electronically signed by Dev Castaneda > 08/07/20 [id number]
[2020-08-07] MEDS ORDERED: oxygen (13:04)
[2020-08-07 13:46] VITALS: BP 108/69
== END 2020-08-07 13:30 | disposition home or self-care (01) ==
LOC: M ED 09:54
DX: J96.11 Chronic respiratory failure with hypoxia (principal); R91.8 Other nonspecific abnormal finding of lung field; E11.9 Type 2 diabetes mellitus without complications; J44.9 Chronic obstructive pulmonary disease, unspecified; F17.200 Nicotine dependence, unspecified, uncomplicated; Z79.84 Long term (current) use of oral hypoglycemic drugs; Z79.899 Other long term (current) drug therapy

== ENCOUNTER → 2020-08-07 | Outpatient (CLI) | payer MEDICARE ==
[~2020-08-07] MED LIST changes: -ISOVUE-370 76% 100ML VIAL As Ordered ONE; +LIDOCAINE 1% MDV 20ML VIAL As Ordered ONE; +SIME180C25 PO; +oxygen
[2020-08-07 09:17] VITALS: BP 93/54
== END ==
LOC: M IRPRO 09:07
PROVIDERS: ATTEND Internal Medicine Pulmonary Disease
DX: R41.0 Disorientation, unspecified (principal); Z53.8 Procedure and treatment not carried out for other reasons

== ENCOUNTER → 2020-08-15 | Outpatient (CLI) | payer MEDICARE ==
[~2020-08-15] MED LIST changes: +ALB2.5NEB INH; +DONE5TAB82 PO; +LIDOCAINE 1% MDV 20ML VIAL As Ordered ONE; +SODIUM BICARBONATE 8.4% INJ 50MEQ 50 ML VIAL As Ordered ONE; +ZOLO100T PO; +oxygen
--- NOTE | 2020-08-15 10:52 | REP ---
INDICATION: POST LEFT LUNG BIOPSY, 1 VIEW, PA INSPIRATION. COMPARISON: Comparison chest x-ray August 07, 2020.. TECHNIQUE: Upright PA chest x-ray. FINDINGS: There is a large perihilar opacity representing the mass which was the target of today's biopsy in the left chest. This is unchanged. There is no evidence of pneumothorax or other complication. Right chest is unchanged. IMPRESSION: No complications seen. <Electronically signed by Daniel Fang > 08/15/20 [id number]
[2020-08-15 12:30] VITALS: BP 112/61
--- NOTE | 2020-08-15 13:14 | REP ---
INDICATION: ABNORMAL XRAY TORRIE. COMPARISON: None. TECHNIQUE: The procedure is performed by Micaela Chou [facility], under the direct supervision of Dr. Fang. The risks and benefits of the procedure were explained to the patient and informed consent was obtained both orally and written. Directly prior to the start of the procedure, a formal timeout was done in the exam room. The left upper lobe lung mass was localized using CT guidance. Skin was prepped and draped in the usual sterile fashion. Eight ml of buffered lidocaine was used as a local anesthetic. FINDINGS: Using CT guidance a 19/20 gauge coaxial needle biopsy system was inserted and advanced into the nodule. Six core biopsy samples were obtained and sent to the lab. CT images obtained directly after the biopsy show no evidence of pneumothorax. After the appropriate amount of monitored convalescence the patient was discharged from the department. IMPRESSION: CT-guided left upper lobe lung biopsy. <Electronically signed by Micaela Chou > 08/15/20 1223 <Electronically signed by Daniel Fang > 08/15/20 1311
== END ==
LOC: M IRPRO 08:36
PROVIDERS: ATTEND Internal Medicine Pulmonary Disease
DX: C34.12 Malignant neoplasm of upper lobe, left bronchus or lung (principal)